=== PATIENT | female | born 1955 | race Caucasian/White ===

== ENCOUNTER 2017-09-18 10:33 | Inpatient (IN) ==
--- NOTE | 2017-09-18 10:49 | Emergency Department Note ---
ED Disposition Clinical Impression: Pancreatitis Qualifiers: Pancreatitis type: unspecified pancreatitis type Acute pancreatitis complication: no infection or necrosis Disposition: Still a Patient Condition on Discharge: Fair - Critical Care Critical Care Time: No Attestation: On 09/18/17, the high probability of a clinically significant, sudden or life threatening deterioration of the following system(s) required my full and direct attention, intervention and personal management. The time I documented below is in addition to time spent performing reported procedures but includes the following listed in this critical care notation. Medical Decision Making - Petr Inquiry Pt receiving controlled substance: Yes Petr was queried for this patient: No Reason not queried -: Emergent pt cond-no time Risks and benefits of using a controlled substance: were not discussed with pt by me Vital Signs: 09/18/17 10:38 09/18/17 11:03 09/18/17 11:30 Temperature 97.6 F Temperature Source Oral Pulse Rate [Right Brachial] 85 78 87 Respiratory Rate 20 18 18 Blood Pressure [Right Arm] 154/67 150/68 168/87 Blood Pressure Mean [Right Arm] 96 95 114 Blood Pressure Source [Right Arm] Automatic Cuff Automatic Cuff Automatic Cuff Blood Pressure Position [Right Arm] Supine Sitting Sitting 02 Sat by Pulse Oximetry 99 97 99 Oxygen Delivery Method Room Air 09/18/17 12:36 Temperature Temperature Source Pulse Rate [Right Brachial] 80 Respiratory Rate 18 Blood Pressure [Right Arm] 160/77 Blood Pressure Mean [Right Arm] 104 Blood Pressure Source [Right Arm] Automatic Cuff Blood Pressure Position [Right Arm] Sitting 02 Sat by Pulse Oximetry 98 Oxygen Delivery Method Room Air - Lab Data Lab Results 09/18/17 11:00: Urine Color Yellow, Urine Appearance Clear, Urine pH 6.0, Ur Specific [place] >= 1.030, Urine Protein 1+, Urine Glucose (UA) Negative, Urine Ketones 1+, Urine Blood 1+, Urine Nitrate Negative, Urine Bilirubin Negative, Urine Urobilinogen 0.2, Ur Leukocyte Esterase Negative, Urine RBC Occasional, Urine WBC 5-10, Ur Squamous Epith Cells 20-50, Urine Bacteria 2+ 09/18/17 11:00: WBC 14.5 H, RBC 5.24, Hgb 14.1, Hct 43.4, MCV 82.9, MCH 26.9 L, MCHC 32.5, RDW 14.8, Plt Count 218, MPV 8.0, Neut % (Auto) 89.3 H, Lymph % (Auto ) 6.2 L, [place] % (Auto) 4.1, Eos % (Auto) 0.2, Baso % (Auto) 0.2, Neut # (Auto) 12.9 H, Lymph # (Auto) 0.9, [place] # (Auto) 0.6, Eos # (Auto) 0.0, Baso # (Auto) 0.0, Total Counted 100, Neutrophils % (Manual) 83 H, Lymphocytes % (Manual) 9 L , Monocytes % (Manual) 8, Platelet Estimate Normal, Hypochromasia 1+ 09/18/17 11:00: Sodium 137, Potassium 3.6, Chloride 102, Carbon Dioxide 24, Anion Gap 14.6, BUN 13, Creatinine 0.81, Estimated Creat Clear 83, Estimated GFR 72, Est GFR ( Amer) 87, Glucose 121 H, Calcium 8.4 L, Total Bilirubin 0.7, AST 21, ALT 22, Alkaline Phosphatase 72, Troponin I < 0.02, Total Protein 6.9, Albumin 3.8, Globulin 3.1, Albumin/Globulin Ratio 1.2, Lipase 31157 H Result diagrams: 09/18/17 11:00 09/18/17 11:00 Orders (Tests/Meds): ED MEDICATIONS Discontinued Medications Generic Name Dose Route Start Last Admin Trade Name Saritha PRN Reason Stop Dose Admin Hydromorphone HCl 1 mg 09/18/17 12:51 09/18/17 12:57 Dilaudid 2mg/Ml Syringe IV 09/18/17 12:52 1 mg ONCE ONE Administration Sodium Chloride 1,000 mls @ 999 mls/hr 09/18/17 11:00 09/18/17 10:54 Sod Chlor 0.9% 1000ml Bag IV 09/18/17 12:00 999 mls/hr .Q1H1M CAROLEE Administration Iopamidol 75 ml 09/18/17 11:52 09/18/17 11:53 [id number]-[id number]; 75ml Vial IV 09/18/17 11:53 75 ml ONCE ONE Administration Morphine Sulfate 4 mg 09/18/17 10:58 09/18/17 11:04 Morphine 4mg/Ml Syringe IV 09/18/17 10:59 4 mg ONCE ONE Administration Ondansetron HCl 4 mg 09/18/17 10:53 09/18/17 10:54 Zofran 4mg/2ml Vial IV 09/18/17 10:54 4 mg ONCE ONE Administration Sodium Chloride 10 ml 09/18/17 11:52 09/18/17 11:53 Rad-Saline Flush 10ml Syringe IV 09/18/17 11:53 10 ml ONCE ONE Administration ORDERS Category Date Time Status Urine Culture Stat Micro 09/18/17 11:00 Received - ECG Data Tracing #1 EKG interpreted by Mamadou Shipley MD: Rhythm: sinus Rate: 65 [place]: normal Ectopy: none Conduction: normal ST Segment Changes: none T Wave Changes: none Q Waves: none No evidence of acute ischemia or injury Normal electrocardiogram - Physician Consults Physician Consulted: Etta Time: 13:22 Reason -: Admission Comment/Response: Agrees to admit the patient to the hospital. We discussed the patient's clinical information, including history, exam, laboratory and radiology results and ED course. Per hospital procedure, I will write temporary bridge inpatient orders on the patient. Specific orders requested by the admitting physician: Surgical consult, gallbladder ultrasound in the morning , IV fluids, clear liquids General Adult HPI - General Stated complaint: stomach pains Time Seen by Provider: 09/18/17 10:49 - History of Present Illness HPI narrative: Generalized abdominal pain since 4 PM yesterday. One episode of vomiting. Poor appetite and states she has not been drinking much fluid either. No urinary symptoms except decreased urinary output. Feels hot and cold, but temperature not taken. No diarrhea or constipation, last bowel movement yesterday morning. Prior hysterectomy, no other abdominal surgeries. Pain is improved by laying down. Pain radiates to back. - Related Data Home Medications Medication Instructions Recorded Confirmed Aspirin [Aspir 81] 81 mg PO DAILY 09/18/17 09/18/17 Pravastatin Sodium [Pravachol 20mg 20 mg PO DAILY 09/18/17 09/18/17 Tablet] Allergies Allergy/AdvReac Type Severity Reaction Status Date / Time nickel Allergy Verified 09/18/17 10:51 [facility] History I have reviewed the patient's past medical history: Yes ROS Obtained: Yes All systems reviewed & no additional complaints - Constitutional Constitutional: Reports as per HPI - Cardiovascular Cardiovascular: Denies chest pain - Respiratory Respiratory: No dyspnea - Gastrointestinal Gastrointestingal: Reports: abdominal pain, nausea, vomiting. Denies: constipation, diarrhea - Genitourinary Female Genitourinary: Denies dysuria - Musculoskeletal Musculoskeletal: Reports back pain Physical Exam - General General appearance: alert, in no apparent distress - Head Head exam: atraumatic, normocephalic, normal inspection - Eye Eye exam: Present: normal appearance, PERRL, EOMI - ENT ENT exam: Present: normal exam, mucous membranes moist - Neck Neck exam: Present: normal inspection, full ROM, trachea midline. Absent: meningismus, lymphadenopathy - Chest Chest inspection: Present: normal inspection, symmetric chest wall rise. Absent : tenderness - Respiratory Respiratory exam: Present: normal lung sounds bilaterally. Absent: respiratory distress - Cardiovascular Cardiovascular exam: Present: regular rate, normal rhythm. Absent: JVD - Abdominal Exam Abdominal exam: Present: soft, tenderness, normal bowel sounds. Absent: distention, guarding, rebound, rigidity Abdominal tenderness: Present: diffuse - Extremities Exam Extremities exam: Present: normal inspection, full ROM, normal capillary refill. Absent: calf tenderness - Back Exam Back exam: Present: normal inspection. Absent: tenderness - Neurological Exam Neurological exam: Present: alert, oriented X3 - Psychiatric Psychiatric exam: Present: normal affect, normal mood - Skin Skin exam: Present: warm, dry, intact, normal color - Lymphatic Lymphatic Findings: no adenopathy
[2017-09-18 11:07] LABS: Microscopic, Urine URINE MICROSCOPIC (MICROSCOPIC)
[2017-09-18 11:10] LABS: Appearance,Urine CLEAR (Clear); Basophils % 0.2 % (0.1-2.0); Blood, Urine 1+ (Negative); Color,Urine YELLOW (Yellow); Eosinophils % 0.2 % (0.1-12.0); Glucose,Urine (UA) Negative (Negative); Hematocrit 43.4 % (37.0-47.0); Hemoglobin 14.1 g/dL (12.2-16.2); Ketones,Urine 1+ (Negative); Leukocyte Esterase,Urine Negative (Negative); Lymphocytes # 0.9 K/mm3 (0.7-4.5); Lymphocytes % 6.2 K/mm3 (10-50); Mean Corpuscular HGB Conc 32.5 g/dL (31.8-35.4); Mean Corpuscular Hemoglobin 26.9 pg (27.0-31.2); Mean Corpuscular Volume 82.9 fl (81-99); Monocytes # 0.6 K/mm3 (0.1-1.0); Monocytes % 4.1 % (1.7-9.3); Neutrophils # 12.9 K/mm3 (1.8-7.8); Neutrophils % 89.3 % (37.0-80.0); Platelet Count 218 K/mm3 (142-424); Protein,Urine 1+ (Negative); Red Blood Count 5.24 M/mm3 (4.20-5.40); Red Cell Distribution Width 14.8 % (11.5-17.5); Specific Gravity, Urine >= 1.030 (1.005-1.030); Urobilinogen,Urine 0.2 EU/dl (0.2); White Blood Count 14.5 K/mm3 (4.8-10.8)
[2017-09-18 11:27] LABS: Bilirubin,Urine Negative (Negative)
[2017-09-18 11:28] LABS: Hypochromasia 1+; Lymphocytes % 9 % (10-50); Monocytes % 8 % (2-9); Neutrophils % 83 % (42-76); Total Cells Counted 100
[2017-09-18 11:33] LABS: Bacteria,Urine 2+ /lpf; RBC,Urine Occasional #/hpf (0-3); Squamous Epithelial Cell,Urine 20-50 #/hpf (0-5)
[2017-09-18 11:35] LABS: Alanine Aminotransferase 22 U/L (12-78); Albumin Level 3.8 gm/dL (3.4-5.0); Albumin/Globulin Ratio 1.2 (1.1-1.8); Alkaline Phosphatase 72 U/L (46-116); Anion Gap 14.6 mEq/L (5-15); Aspartate Amino Transferase 21 U/L (15-37); Bilirubin,Total 0.7 mg/dL (0.2-1.0); Blood Urea Nitrogen 13 mg/dL (7-18); Calcium 8.4 mg/dL (8.5-10.1); Carbon Dioxide 24 mmol/L (21.0-32.0); Chloride 102 mmol/L (98-107); Globulin 3.1 gm/dl (1.3-3.2); Glucose 121 mg/dL (74-106); Potassium 3.6 mmoL/L (3.5-5.1); Sodium 137 mmol/L (136-145); Total Protein,Serum 6.9 gm/dL (6.4-8.2)
[2017-09-18 12:23] LABS: Lipase 11703 u/L (73-393)
--- NOTE | 2017-09-18 15:37 | Pharmacy Consult Notes ---
[facility] Pharmacy VTE Monitoring - Patient Demographics Admission date: 09/18/17 Report Date: 09/18/17 Time: 15:37 Allergies/Adverse Reactions: Patient Allergies nickel Allergy (Verified 09/18/17 10:51) Height: 1.55 m Weight: 88.904 kg Patient Problems: Current Active Problems Pancreatitis (Acute) - VTE Risk Labs: VTE Related Lab Results Hgb 14.1 g/dL (12.2-16.2) 09/18/17 11:00 Hct 43.4 % (37.0-47.0) 09/18/17 11:00 Plt Count 218 K/mm3 (142-424) 09/18/17 11:00 BUN 13 mg/dL (7-18) 09/18/17 11:00 Creatinine 0.81 mg/dL (0.55-1.02) 09/18/17 11:00 Estimated Creat Clear 83 mL/min (0-300) 09/18/17 11:00 - Prophylaxis VTE Prophylaxis Ordered?: Yes Types of VTE Prophylaxis: TEDS Knee High Location of Applied Device: Bilateral Lower Extremeties - VTE Diagnosis Confirmed Treatment or plan recommended: Continue Current Treatment
--- NOTE | 2017-09-19 06:46 | History & Physical Report ---
*Admission Date: 09/18/17 *Chief complaint: abd pain *History of present illness: this wf has progressive abd pain with vomiting over the last few days and presented to ed eneralized abdominal pain since 4 PM yesterday. One episode of vomiting. Poor appetite and states she has not been drinking much fluid either. No urinary symptoms except decreased urinary output. Feels hot and cold, but temperature not taken. No diarrhea or constipation, last bowel movement yesterday morning. Prior hysterectomy, no other abdominal surgeries. Pain is improved by laying down. 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 No: Pacemaker Amputation: No Fractures: No - *Social History Educational Level: Completed High School Smoking Status: Current every day smoker Tobacco Type: cigarettes # Packs/Day (cigarettes): 1 #Yrs smoked (if former smoker): 46 Alcohol Intake: never Occupational Status: employed Housing: house Household Members: none - Psychiatric History Expresses thoughts of harming self/others: None Suicide Plan Description: No Plan *Family Hx:: Cancer Review of Systems - Review of Systems Review of systems:: pertinent systems reviewed and negative unless documented below - Constitutional Denies fever(s) - Eyes Denies change in vision - ENT Denies sore throat - *Cardiovascular Denies chest pain - *Respiratory Denies cough - *Gastrointestinal Reports abdominal pain, Reports nausea, Reports vomiting, Denies black, tarry stools - *Genitourinary Denies blood in urine - *Musculoskeletal Denies joint pain - Integumentary/Breasts Denies rash - *Neurologic Denies seizure-like activity - Psychiatric Denies anxiety Meds Home Medications Medication Instructions Recorded Confirmed Type Aspirin [Aspir 81] 81 mg PO DAILY 09/18/17 09/18/17 History Pravastatin Sodium [Pravachol 20mg 20 mg PO DAILY 09/18/17 09/18/17 History Tablet] Allergies Allergy/AdvReac Type Severity Reaction Status Date / Time nickel Allergy Verified 09/18/17 10:51 Exam Vital signs and Labs for Last 24 Hours: Temp Pulse Resp BP Pulse Ox 98.8 F 88 17 115/60 91 L 09/19/17 04:00 09/19/17 04:00 09/19/17 04:00 09/19/17 04:00 09/19/17 04:00 Laboratory Results - last 24 hr 09/18/17 11:00: Urine Color Yellow, Urine Appearance Clear, Urine pH 6.0, Ur Specific [place] >= 1.030, Urine Protein 1+, Urine Glucose (UA) Negative, Urine Ketones 1+, Urine Blood 1+, Urine Nitrate Negative, Urine Bilirubin Negative, Urine Urobilinogen 0.2, Ur Leukocyte Esterase Negative, Urine RBC Occasional, Urine WBC 5-10, Ur Squamous Epith Cells 20-50, Urine Bacteria 2+ 09/18/17 11:00: WBC 14.5 H, RBC 5.24, Hgb 14.1, Hct 43.4, MCV 82.9, MCH 26.9 L, MCHC 32.5, RDW 14.8, Plt Count 218, MPV 8.0, Neut % (Auto) 89.3 H, Lymph % (Auto ) 6.2 L, [place] % (Auto) 4.1, Eos % (Auto) 0.2, Baso % (Auto) 0.2, Neut # (Auto) 12.9 H, Lymph # (Auto) 0.9, [place] # (Auto) 0.6, Eos # (Auto) 0.0, Baso # (Auto) 0.0, Total Counted 100, Neutrophils % (Manual) 83 H, Lymphocytes % (Manual) 9 L , Monocytes % (Manual) 8, Platelet Estimate Normal, Hypochromasia 1+ 09/18/17 11:00: Sodium 137, Potassium 3.6, Chloride 102, Carbon Dioxide 24, Anion Gap 14.6, BUN 13, Creatinine 0.81, Estimated Creat Clear 83, Estimated GFR 72, Est GFR ( Amer) 87, Glucose 121 H, Calcium 8.4 L, Total Bilirubin 0.7, AST 21, ALT 22, Alkaline Phosphatase 72, Troponin I < 0.02, Total Protein 6.9, Albumin 3.8, Globulin 3.1, Albumin/Globulin Ratio 1.2, Lipase 12413 H I & O for Last 24 hours: Intake & Output 09/16/17 09/17/17 09/18/17 09/19/17 11:59 11:59 11:59 11:59 Intake Total 930 / 930 Output Total 100 / 100 Balance 830 / 830 Weight 196 lb 196 lb - Constitutional no acute distress - *Routine HEENT Exam Head: Present: normocephalic Eye: Present: EOMI, PERRL ENT: Present: mucous membranes dry - *Routine Neck Exam Present: supple - *Routine Respiratory Exam Present: CTA bilaterally - *Routine Cardiovascular Exam Present: RRR, murmur, S4 - *Routine Abdominal Exam Present: soft, tenderness - *Routine Extremities Exam Absent: calf tenderness - *Routine Skin Exam Present: intact - *Routine Neurological Exam Present: alert, oriented X3, CN II-XII intact - Routine Psychiatric Exam Present: normal affect H&P: Result - Labs Labs: Short CBC 09/18/17 Range/Units 11:00 WBC 14.5 H (4.8-10.8) K/mm3 Hgb 14.1 (12.2-16.2) g/dL Hct 43.4 (37.0-47.0) % Plt Count 218 (142-424) K/mm3 BMP 09/18/17 11:00 Sodium 137 Potassium 3.6 Chloride 102 Carbon Dioxide 24 BUN 13 Creatinine 0.81 Glucose 121 H Calcium 8.4 L Cardiac Enzymes 09/18/17 Range/Units 11:00 Troponin I < 0.02 (0.00-0.06) ng/ml Liver Function 09/18/17 Range/Units 11:00 Total Bilirubin 0.7 (0.2-1.0) mg/dL AST 21 (15-37) U/L ALT 22 (12-78) U/L Alkaline Phosphatase 72 (46-116) U/L Albumin 3.8 (3.4-5.0) gm/dL Urine 09/18/17 Range/Units 11:00 Urine Color Yellow (Yellow) Urine Appearance Clear (Clear) Urine pH 6.0 (5.0-8.5) Ur Specific [place] >= 1.030 (1.005-1.030) Urine Protein 1+ (Negative) Urine Glucose (UA) Negative (Negative) Assessment and Plan (1) Pancreatitis Current visit: Yes Status: Acute Qualifiers: Pancreatitis type: unspecified pancreatitis type Acute pancreatitis complication: no infection or necrosis Category: Medical Code(s): K85.90 - Acute pancreatitis without necrosis or infection, unspecified (2) Cholelithiasis Current visit: Yes Status: Acute Category: Medical Code(s): K80.20 - Calculus of gallbladder without cholecystitis without obstruction
--- NOTE | 2017-09-19 06:56 | Consult Report ---
*Admission Date: 09/18/17 *Chief complaint: GALLSTONE *History of present illness: Patient is a 62-year-old white female who had developed sudden onset of high epigastric pain beginning approximately 4 PM on 09/17/17. This was quite severe and described as sharp. Radiating anterior chest. She developed general abdominal discomfort and pain. She presented to the emergency department yesterday afternoon. She is found to have markedly elevated pancreatic enzymes and mild to moderate leukocytosis. She had CT scan performed with IV contrast which revealed findings consistent with significant pancreatitis radiographically with peripancreatic adenopathy. She was admitted for inpatient management. She did have ultrasound of the gallbladder performed which revealed a single gallstone without any evidence of biliary ductal dilatation, pericholecystic fluid, gallbladder wall thickening. Surgical consultation was obtained. 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 No: Pacemaker Amputation: No Fractures: No - *Social History Educational Level: Completed High School Smoking Status: Current every day smoker Tobacco Type: cigarettes # Packs/Day (cigarettes): 1 #Yrs smoked (if former smoker): 46 Alcohol Intake: never Occupational Status: employed Housing: house Household Members: none - Psychiatric History Expresses thoughts of harming self/others: None Suicide Plan Description: No Plan *Family Hx:: Cancer Meds Home Medications Medication Instructions Recorded Confirmed Type Aspirin [Aspir 81] 81 mg PO DAILY 09/18/17 09/18/17 History Pravastatin Sodium [Pravachol 20mg 20 mg PO DAILY 09/18/17 09/18/17 History Tablet] Allergies Allergy/AdvReac Type Severity Reaction Status Date / Time nickel Allergy Verified 09/18/17 10:51 Exam Vital signs and Labs for Last 24 Hours: Temp Pulse Resp BP Pulse Ox 98.8 F 88 17 115/60 91 L 09/19/17 04:00 09/19/17 04:00 09/19/17 04:00 09/19/17 04:00 09/19/17 04:00 Laboratory Results - last 24 hr 09/18/17 11:00: Urine Color Yellow, Urine Appearance Clear, Urine pH 6.0, Ur Specific [place] >= 1.030, Urine Protein 1+, Urine Glucose (UA) Negative, Urine Ketones 1+, Urine Blood 1+, Urine Nitrate Negative, Urine Bilirubin Negative, Urine Urobilinogen 0.2, Ur Leukocyte Esterase Negative, Urine RBC Occasional, Urine WBC 5-10, Ur Squamous Epith Cells 20-50, Urine Bacteria 2+ 09/18/17 11:00: WBC 14.5 H, RBC 5.24, Hgb 14.1, Hct 43.4, MCV 82.9, MCH 26.9 L, MCHC 32.5, RDW 14.8, Plt Count 218, MPV 8.0, Neut % (Auto) 89.3 H, Lymph % (Auto ) 6.2 L, [place] % (Auto) 4.1, Eos % (Auto) 0.2, Baso % (Auto) 0.2, Neut # (Auto) 12.9 H, Lymph # (Auto) 0.9, [place] # (Auto) 0.6, Eos # (Auto) 0.0, Baso # (Auto) 0.0, Total Counted 100, Neutrophils % (Manual) 83 H, Lymphocytes % (Manual) 9 L , Monocytes % (Manual) 8, Platelet Estimate Normal, Hypochromasia 1+ 09/18/17 11:00: Sodium 137, Potassium 3.6, Chloride 102, Carbon Dioxide 24, Anion Gap 14.6, BUN 13, Creatinine 0.81, Estimated Creat Clear 83, Estimated GFR 72, Est GFR ( Amer) 87, Glucose 121 H, Calcium 8.4 L, Total Bilirubin 0.7, AST 21, ALT 22, Alkaline Phosphatase 72, Troponin I < 0.02, Total Protein 6.9, Albumin 3.8, Globulin 3.1, Albumin/Globulin Ratio 1.2, Lipase 81085 H I & O for Last 24 hours: Intake & Output 09/16/17 09/17/17 09/18/17 09/19/17 11:59 11:59 11:59 11:59 Intake Total 2911 / 2911 Output Total 100 / 100 Balance 2811 / 2811 Weight 196 lb 196 lb - Constitutional no acute distress - *Routine HEENT Exam Comments: Sclera nonicteric - *Routine Respiratory Exam Present: CTA bilaterally - *Routine Cardiovascular Exam Present: RRR - *Routine Abdominal Exam Present: soft, tenderness Results - Labs 09/18/17 11:00 09/18/17 11:00 Laboratory Results - last 24 hr 09/18/17 11:00: Urine Color Yellow, Urine Appearance Clear, Urine pH 6.0, Ur Specific [place] >= 1.030, Urine Protein 1+, Urine Glucose (UA) Negative, Urine Ketones 1+, Urine Blood 1+, Urine Nitrate Negative, Urine Bilirubin Negative, Urine Urobilinogen 0.2, Ur Leukocyte Esterase Negative, Urine RBC Occasional, Urine WBC 5-10, Ur Squamous Epith Cells 20-50, Urine Bacteria 2+ 09/18/17 11:00: WBC 14.5 H, RBC 5.24, Hgb 14.1, Hct 43.4, MCV 82.9, MCH 26.9 L, MCHC 32.5, RDW 14.8, Plt Count 218, MPV 8.0, Neut % (Auto) 89.3 H, Lymph % (Auto ) 6.2 L, [place] % (Auto) 4.1, Eos % (Auto) 0.2, Baso % (Auto) 0.2, Neut # (Auto) 12.9 H, Lymph # (Auto) 0.9, [place] # (Auto) 0.6, Eos # (Auto) 0.0, Baso # (Auto) 0.0, Total Counted 100, Neutrophils % (Manual) 83 H, Lymphocytes % (Manual) 9 L , Monocytes % (Manual) 8, Platelet Estimate Normal, Hypochromasia 1+ 09/18/17 11:00: Sodium 137, Potassium 3.6, Chloride 102, Carbon Dioxide 24, Anion Gap 14.6, BUN 13, Creatinine 0.81, Estimated Creat Clear 83, Estimated GFR 72, Est GFR ( Amer) 87, Glucose 121 H, Calcium 8.4 L, Total Bilirubin 0.7, AST 21, ALT 22, Alkaline Phosphatase 72, Troponin I < 0.02, Total Protein 6.9, Albumin 3.8, Globulin 3.1, Albumin/Globulin Ratio 1.2, Lipase 21241 H Assessment and Plan - Assessment and plan all Dx Assessment and Plan for all problems:: Patient has appreciable degree of acute pancreatitis. Continue medical management with bowel rest at this time and IV fluid hydration. This is possibly biliary. At this point, however, would not pursue cholecystectomy. May need gastroenterology evaluation. May need additional imaging such as MRI of the pancreas given the abnormalities noted on CT scan, particularly the peripancreatic adenopathy consistent with either reactive adenopathy, lymphoma, or metastatic disease.
--- NOTE | 2017-09-20 08:11 | Progress Note ---
Subjective Patient reports: feels better Narrative: Patient feels a bit better. Less pain. Exam Vital signs and Labs for Last 24 Hours: Temp Pulse Resp BP Pulse Ox 97.8 F 87 20 137/67 90 L 09/20/17 07:46 09/20/17 07:46 09/20/17 07:46 09/20/17 07:46 09/20/17 07:46 Laboratory Results - last 24 hr 09/19/17 06:21: Lipase 2767 H 09/19/17 06:21: Lactate Dehydrogenase 272 H I & O for Last 24 hours: Intake & Output 09/17/17 09/18/17 09/19/17 09/20/17 11:59 11:59 11:59 11:59 Intake Total 2911 / 2911 749 / 749 Output Total 275 / 275 650 / 650 Balance 2636 / 2636 99 / 99 Weight 196 lb 196 lb 195 lb 15.996 oz Microbiology Reports for the Last 24 Hours: Microbiology 09/18/17 11:00 Urine,Clean Catch Urine Culture - Final Multiple organisms, suggests contamination. - *Routine Abdominal Exam Present: soft, tenderness. Absent: rebound, guarding Progress Note: A&P (1) Pancreatitis Status: Acute Current Visit: Yes (2) Cholelithiasis Status: Acute Current Visit: Yes Assessment and Plan for All Diagnoses:: Recheck labs today. If improving may be able to give clear liquids. Possibly consider cholecystectomy with cholangiogram during this hospitalization. However, she will need additional investigation regarding peripancreatic adenopathy (may need PET CT) once pancreatitis resolves.
[2017-09-20 08:32] LABS: Basophils % 0.4 % (0.1-2.0); Eosinophils % 0.3 % (0.1-12.0); Hematocrit 36.5 % (37.0-47.0); Hemoglobin 11.6 g/dL (12.2-16.2); Lymphocytes # 0.8 K/mm3 (0.7-4.5); Lymphocytes % 8.8 K/mm3 (10-50); Mean Corpuscular HGB Conc 31.7 g/dL (31.8-35.4); Mean Corpuscular Hemoglobin 26.8 pg (27.0-31.2); Mean Corpuscular Volume 84.6 fl (81-99); Mean Platelet Volume 8.2 fl (7.4-10.4); Monocytes # 0.4 K/mm3 (0.1-1.0); Monocytes % 4.7 % (1.7-9.3); Neutrophils # 7.9 K/mm3 (1.8-7.8); Neutrophils % 85.9 % (37.0-80.0); Platelet Count 139 K/mm3 (142-424); Red Blood Count 4.32 M/mm3 (4.20-5.40); Red Cell Distribution Width 14.9 % (11.5-17.5); White Blood Count 9.2 K/mm3 (4.8-10.8)
[2017-09-20 08:44] LABS: Albumin Level 2.6 gm/dL (3.4-5.0); Albumin/Globulin Ratio 0.8 (1.1-1.8); Anion Gap 14.2 mEq/L (5-15); Bilirubin,Total 0.7 mg/dL (0.2-1.0); Calcium 8.1 mg/dL (8.5-10.1); Globulin 3.3 gm/dl (1.3-3.2); Potassium 3.2 mmoL/L (3.5-5.1); Total Protein,Serum 5.9 gm/dL (6.4-8.2)
[2017-09-20 09:08] LABS: Eosinophils % 1 % (0-3); Hypochromasia 1+; Lymphocytes % 10 % (10-50); Monocytes % 4 % (2-9); Neutrophils % 82 % (42-76); Total Cells Counted 100
--- NOTE | 2017-09-20 09:08 | Progress Note ---
Internal Medicine - PN: Subj *Date: 09/20/17 *Time: 09:07 Exam Vital signs and Labs for Last 24 Hours: Temp Pulse Resp BP Pulse Ox 97.8 F 87 20 137/67 90 L 09/20/17 07:46 09/20/17 07:46 09/20/17 07:46 09/20/17 07:46 09/20/17 07:46 Laboratory Results - last 24 hr 09/19/17 06:21: Lipase 2767 H 09/20/17 08:00: WBC 9.2 D, RBC 4.32, Hgb 11.6 L, Hct 36.5 L, MCV 84.6, MCH 26.8 L, MCHC 31.7 L, RDW 14.9, Plt Count 139 L D, MPV 8.2, Neut % (Auto) 85.9 H , Lymph % (Auto) 8.8 L, [place] % (Auto) 4.7, Eos % (Auto) 0.3, Baso % (Auto) 0.4, Neut # (Auto) 7.9 H, Lymph # (Auto) 0.8, [place] # (Auto) 0.4, Eos # (Auto) 0.0, Baso # (Auto) 0.0 09/20/17 08:00: Sodium 140, Potassium 3.2 L, Chloride 105, Carbon Dioxide 24, Anion Gap 14.2, BUN 9 D, Creatinine 0.62 D, Estimated Creat Clear 83, Estimated GFR 98, Est GFR ( Amer) 118 D, Glucose 79, Calcium 8.1 L, Total Bilirubin 0.7, AST 13 L D, ALT 18, Alkaline Phosphatase 53, Total Protein 5.9 L, Albumin 2.6 L, Globulin 3.3 H, Albumin/Globulin Ratio 0.8 L, Amylase 232 H, Lipase 623 H I & O for Last 24 hours: Intake & Output 09/17/17 09/18/17 09/19/17 09/20/17 11:59 11:59 11:59 11:59 Intake Total 2911 / 2911 749 / 749 Output Total 275 / 275 650 / 650 Balance 2636 / 2636 99 / 99 Weight 196 lb 196 lb 195 lb 15.996 oz Microbiology Reports for the Last 24 Hours: Microbiology 09/18/17 11:00 Urine,Clean Catch Urine Culture - Final Multiple organisms, suggests contamination. - Constitutional no acute distress - *Routine HEENT Exam Head: Present: normocephalic Eye: Present: PERRL ENT: Present: mucous membranes moist - *Routine Neck Exam Present: full ROM - *Routine Respiratory Exam Present: CTA bilaterally - *Routine Cardiovascular Exam Present: RRR - *Routine Abdominal Exam Present: soft, normoactive bowel sounds, tenderness - *Routine Extremities Exam Present: full ROM - *Routine Skin Exam Present: intact - *Routine Neurological Exam Present: alert, oriented X3, CN II-XII intact - Routine Psychiatric Exam Present: normal affect, normal thought process Assessment and Plan (1) Pancreatitis Current visit: Yes Status: Acute Qualifiers: Pancreatitis type: unspecified pancreatitis type Acute pancreatitis complication: no infection or necrosis Category: Medical Code(s): K85.90 - Acute pancreatitis without necrosis or infection, unspecified (2) Cholelithiasis Current visit: Yes Status: Acute Category: Medical Code(s): K80.20 - Calculus of gallbladder without cholecystitis without obstruction - Assessment and plan all Dx Assessment and Plan for all problems:: Rounded with Dr. Quiles all orders per Etta
--- NOTE | 2017-09-21 08:08 | Progress Note ---
Subjective Narrative: Patient taking some clear liquids. Complains of some abdominal soreness. Exam Vital signs and Labs for Last 24 Hours: Temp Pulse Resp BP Pulse Ox 98.5 F 75 18 110/53 93 L 09/21/17 04:00 09/21/17 04:00 09/21/17 04:00 09/21/17 04:00 09/21/17 04:00 Laboratory Results - last 24 hr 09/20/17 08:00: WBC 9.2 D, RBC 4.32, Hgb 11.6 L, Hct 36.5 L, MCV 84.6, MCH 26.8 L, MCHC 31.7 L, RDW 14.9, Plt Count 139 L D, MPV 8.2, Neut % (Auto) 85.9 H , Lymph % (Auto) 8.8 L, [place] % (Auto) 4.7, Eos % (Auto) 0.3, Baso % (Auto) 0.4, Neut # (Auto) 7.9 H, Lymph # (Auto) 0.8, [place] # (Auto) 0.4, Eos # (Auto) 0.0, Baso # (Auto) 0.0, Total Counted 100, Neutrophils % (Manual) 82 H, Lymphocytes % (Manual) 10, Atypical Lymphs % 3.0, Monocytes % (Manual) 4, Eosinophils % ( Manual) 1, Platelet Estimate Normal, Hypochromasia 1+ 09/20/17 08:00: Sodium 140, Potassium 3.2 L, Chloride 105, Carbon Dioxide 24, Anion Gap 14.2, BUN 9 D, Creatinine 0.62 D, Estimated Creat Clear 83, Estimated GFR 98, Est GFR ( Amer) 118 D, Glucose 79, Calcium 8.1 L, Total Bilirubin 0.7, AST 13 L D, ALT 18, Alkaline Phosphatase 53, Total Protein 5.9 L, Albumin 2.6 L, Globulin 3.3 H, Albumin/Globulin Ratio 0.8 L, Amylase 232 H, Lipase 623 H I & O for Last 24 hours: Intake & Output 09/18/17 09/19/17 09/20/17 09/21/17 11:59 11:59 11:59 11:59 Intake Total 2911 / 2911 749 / 749 1200 / 1200 Output Total 275 / 275 650 / 650 1350 / 1350 Balance 2636 / 2636 99 / 99 -150 / -150 Weight 196 lb 196 lb 195 lb 15.996 oz - *Routine Abdominal Exam Present: soft, tenderness Comments: Mild tenderness in Left upper quadrant and epigastrium. Progress Note: A&P (1) Pancreatitis Status: Acute Current Visit: Yes (2) Cholelithiasis Status: Acute Current Visit: Yes Assessment and Plan for All Diagnoses:: Will try full liquid diet. May tentatively plan for possible gallbladder early next week. If doing very well possible discharge with early outpatient follow up for cholecystectomy with cholangiogram. Will need additional workup, likely with imaging, as outpatient to evaluate possible peripancreatic adenopathy.
[2017-09-21 08:43] LABS: Basophils % 0.3 % (0.1-2.0); Eosinophils # 0.1 K/mm3 (0.0-0.4); Eosinophils % 1.2 % (0.1-12.0); Hematocrit 35.3 % (37.0-47.0); Hemoglobin 11.3 g/dL (12.2-16.2); Lymphocytes # 0.7 K/mm3 (0.7-4.5); Lymphocytes % 8.4 K/mm3 (10-50); Mean Corpuscular HGB Conc 32.2 g/dL (31.8-35.4); Mean Corpuscular Hemoglobin 26.9 pg (27.0-31.2); Mean Corpuscular Volume 83.8 fl (81-99); Mean Platelet Volume 8.5 fl (7.4-10.4); Monocytes # 0.5 K/mm3 (0.1-1.0); Neutrophils # 6.5 K/mm3 (1.8-7.8); Platelet Count 138 K/mm3 (142-424); Red Blood Count 4.21 M/mm3 (4.20-5.40); Red Cell Distribution Width 14.9 % (11.5-17.5); White Blood Count 7.7 K/mm3 (4.8-10.8)
--- NOTE | 2017-09-21 08:52 | Progress Note ---
Internal Medicine - PN: Subj *Date: 09/21/17 *Time: 08:50 Exam Vital signs and Labs for Last 24 Hours: Temp Pulse Resp BP Pulse Ox 98.1 F 80 20 112/62 90 L 09/21/17 08:00 09/21/17 08:00 09/21/17 08:00 09/21/17 08:00 09/21/17 08:00 Laboratory Results - last 24 hr 09/20/17 08:00: Total Counted 100, Neutrophils % (Manual) 82 H, Lymphocytes % ( Manual) 10, Atypical Lymphs % 3.0, Monocytes % (Manual) 4, Eosinophils % (Manual ) 1, Platelet Estimate Normal, Hypochromasia 1+ 09/21/17 08:30: WBC 7.7, RBC 4.21, Hgb 11.3 L, Hct 35.3 L, MCV 83.8, MCH 26.9 L , MCHC 32.2, RDW 14.9, Plt Count 138 L, MPV 8.5, Neut % (Auto) 84.0 H, Lymph % ( Auto) 8.4 L, [place] % (Auto) 6.0, Eos % (Auto) 1.2, Baso % (Auto) 0.3, Neut # ( Auto) 6.5, Lymph # (Auto) 0.7, [place] # (Auto) 0.5, Eos # (Auto) 0.1, Baso # (Auto ) 0.0 I & O for Last 24 hours: Intake & Output 09/18/17 09/19/17 09/20/17 09/21/17 11:59 11:59 11:59 11:59 Intake Total 2911 / 2911 749 / 749 1680 / 1680 Output Total 275 / 275 650 / 650 1350 / 1350 Balance 2636 / 2636 99 / 99 330 / 330 Weight 196 lb 196 lb 195 lb 15.996 oz - Constitutional no acute distress - *Routine HEENT Exam Head: Present: normocephalic Eye: Present: PERRL ENT: Present: mucous membranes moist - *Routine Neck Exam Present: full ROM - *Routine Respiratory Exam Present: CTA bilaterally - *Routine Cardiovascular Exam Present: RRR - *Routine Abdominal Exam Present: soft, normoactive bowel sounds, tenderness - *Routine Extremities Exam Present: full ROM - *Routine Skin Exam Present: intact - *Routine Neurological Exam Present: alert, oriented X3, CN II-XII intact - Routine Psychiatric Exam Present: normal affect, normal thought process Assessment and Plan (1) Pancreatitis Current visit: Yes Status: Acute Qualifiers: Pancreatitis type: unspecified pancreatitis type Acute pancreatitis complication: no infection or necrosis Category: Medical Code(s): K85.90 - Acute pancreatitis without necrosis or infection, unspecified (2) Cholelithiasis Current visit: Yes Status: Acute Category: Medical Code(s): K80.20 - Calculus of gallbladder without cholecystitis without obstruction - Assessment and plan all Dx Assessment and Plan for all problems:: Rounded with Dr. Quiles all orders per Etta Will advance diet Add [place] encourage patient to try p.o. pain medicine before IV pain medicine. Lipase in the a.m.
[2017-09-21 08:55] LABS: Albumin Level 2.5 gm/dL (3.4-5.0); Albumin/Globulin Ratio 0.7 (1.1-1.8); Bilirubin,Total 0.8 mg/dL (0.2-1.0); Calcium 7.7 mg/dL (8.5-10.1); Globulin 3.4 gm/dl (1.3-3.2); Total Protein,Serum 5.9 gm/dL (6.4-8.2)
--- NOTE | 2017-09-22 08:43 | Progress Note ---
Subjective Patient reports: feels better, still having pain (pain persistent, but improving ) Exam Vital signs and Labs for Last 24 Hours: Temp Pulse Resp BP Pulse Ox 97.7 F 80 18 139/64 94 L 09/22/17 07:28 09/22/17 07:28 09/22/17 08:09 09/22/17 07:28 09/22/17 08:09 Laboratory Results - last 24 hr 09/21/17 08:30: WBC 7.7, RBC 4.21, Hgb 11.3 L, Hct 35.3 L, MCV 83.8, MCH 26.9 L , MCHC 32.2, RDW 14.9, Plt Count 138 L, MPV 8.5, Neut % (Auto) 84.0 H, Lymph % ( Auto) 8.4 L, [place] % (Auto) 6.0, Eos % (Auto) 1.2, Baso % (Auto) 0.3, Neut # ( Auto) 6.5, Lymph # (Auto) 0.7, [place] # (Auto) 0.5, Eos # (Auto) 0.1, Baso # (Auto ) 0.0 09/21/17 08:30: Sodium 136, Potassium 3.0 L, Chloride 101, Carbon Dioxide 27, Anion Gap 11.0, BUN 8, Creatinine 0.63, Estimated Creat Clear 83, Estimated GFR 96, Est GFR ( Amer) 116, Glucose 123 H, Calcium 7.7 L, Total Bilirubin 0.8, AST 14 L, ALT 16, Alkaline Phosphatase 57, Total Protein 5.9 L, Albumin 2.5 L, Globulin 3.4 H, Albumin/Globulin Ratio 0.7 L, Triglycerides 72, Cholesterol 104 L, LDL Cholesterol 64, VLDL Cholesterol 14, HDL Cholesterol 26 L , Cholesterol/HDL Ratio 4.0 H, Amylase 94, Lipase 327 09/22/17 06:23: Lipase 177 I & O for Last 24 hours: Intake & Output 09/19/17 09/20/17 09/21/17 09/22/17 11:59 11:59 11:59 11:59 Intake Total 2911 / 2911 749 / 749 1680 / 1680 580 / 580 Output Total 275 / 275 650 / 650 1350 / 1350 1999 / 1999 Balance 2636 / 2636 99 / 99 330 / 330 -1420 / -1420 Weight 196 lb 195 lb 15.996 oz - Constitutional no acute distress - *Routine Cardiovascular Exam Present: RRR - *Routine Abdominal Exam Present: soft, tenderness Comments: some TTP in epigastric region (improved per pt) Progress Note: A&P (1) Pancreatitis Status: Acute Assessment and plan: slowly improving continue current medical therapy Current Visit: Yes (2) Cholelithiasis Status: Acute Assessment and plan: possible cholecystectomy (Dr. Mays) 09/24 Current Visit: Yes
--- NOTE | 2017-09-22 08:46 | Progress Note ---
Internal Medicine - PN: Subj *Date: 09/23/17 *Time: 09:22 Interval history: doing better but still with pain and dec po intake - surg considered for sunday as she is still symptomatic at this time Exam Vital signs and Labs for Last 24 Hours: Temp Pulse Resp BP Pulse Ox 97.7 F 80 18 139/64 94 L 09/22/17 07:28 09/22/17 07:28 09/22/17 08:09 09/22/17 07:28 09/22/17 08:09 Laboratory Results - last 24 hr 09/21/17 08:30: WBC 7.7, RBC 4.21, Hgb 11.3 L, Hct 35.3 L, MCV 83.8, MCH 26.9 L , MCHC 32.2, RDW 14.9, Plt Count 138 L, MPV 8.5, Neut % (Auto) 84.0 H, Lymph % ( Auto) 8.4 L, [place] % (Auto) 6.0, Eos % (Auto) 1.2, Baso % (Auto) 0.3, Neut # ( Auto) 6.5, Lymph # (Auto) 0.7, [place] # (Auto) 0.5, Eos # (Auto) 0.1, Baso # (Auto ) 0.0 09/21/17 08:30: Sodium 136, Potassium 3.0 L, Chloride 101, Carbon Dioxide 27, Anion Gap 11.0, BUN 8, Creatinine 0.63, Estimated Creat Clear 83, Estimated GFR 96, Est GFR ( Amer) 116, Glucose 123 H, Calcium 7.7 L, Total Bilirubin 0.8, AST 14 L, ALT 16, Alkaline Phosphatase 57, Total Protein 5.9 L, Albumin 2.5 L, Globulin 3.4 H, Albumin/Globulin Ratio 0.7 L, Triglycerides 72, Cholesterol 104 L, LDL Cholesterol 64, VLDL Cholesterol 14, HDL Cholesterol 26 L , Cholesterol/HDL Ratio 4.0 H, Amylase 94, Lipase 327 09/22/17 06:23: Lipase 177 I & O for Last 24 hours: Intake & Output 09/19/17 09/20/17 09/21/17 09/22/17 11:59 11:59 11:59 11:59 Intake Total 2911 / 2911 749 / 749 1680 / 1680 580 / 580 Output Total 275 / 275 650 / 650 1350 / 1350 1999 / 1999 Balance 2636 / 2636 99 / 99 330 / 330 -1420 / -1420 Weight 196 lb 195 lb 15.996 oz - Constitutional no acute distress - *Routine HEENT Exam Head: Present: normocephalic Eye: Present: EOMI, PERRL ENT: Present: mucous membranes dry - *Routine Neck Exam Present: supple - *Routine Respiratory Exam Present: CTA bilaterally - *Routine Cardiovascular Exam Present: RRR, murmur - *Routine Abdominal Exam Present: soft, tenderness - *Routine Extremities Exam Present: full ROM - *Routine Skin Exam Present: intact - *Routine Neurological Exam Present: alert, oriented X3, CN II-XII intact - Routine Psychiatric Exam Present: normal affect Assessment and Plan (1) Pancreatitis Current visit: Yes Status: Acute Qualifiers: Pancreatitis type: unspecified pancreatitis type Acute pancreatitis complication: no infection or necrosis Category: Medical Code(s): K85.90 - Acute pancreatitis without necrosis or infection, unspecified (2) Cholelithiasis Current visit: Yes Status: Acute Category: Medical Code(s): K80.20 - Calculus of gallbladder without cholecystitis without obstruction
--- NOTE | 2017-09-23 08:35 | Progress Note ---
Subjective Patient reports: feels better Exam Vital signs and Labs for Last 24 Hours: Temp Pulse Resp BP Pulse Ox 98.4 F 91 H 18 140/71 93 L 09/23/17 07:35 09/23/17 07:35 09/23/17 07:35 09/23/17 07:35 09/23/17 07:35 I & O for Last 24 hours: Intake & Output 09/20/17 09/21/17 09/22/17 09/23/17 11:59 11:59 11:59 11:59 Intake Total 749 / 749 1680 / 1680 580 / 580 1680 / 1680 Output Total 650 / 650 1350 / 1350 2000 / 2000 1400 / 1400 Balance 99 / 99 330 / 330 -1420 / -1420 280 / 280 Weight 195 lb 15.996 oz - Constitutional no acute distress - *Routine Respiratory Exam Absent: respiratory distress - *Routine Abdominal Exam Present: soft Progress Note: A&P (1) Pancreatitis Status: Acute Assessment and plan: Continuing to improve with medical management Plan laparoscopic cholecystectomy with intraoperative cholangiogram (Dr. Mays ) tomorrow secondary to likely biliary etiology. Current Visit: Yes (2) Cholelithiasis Status: Acute Current Visit: Yes
--- NOTE | 2017-09-23 09:25 | Progress Note ---
Internal Medicine - PN: Subj *Date: 09/23/17 *Time: 09:24 Interval history: doing ok still with pain and dec po intake with prob gb surg planned Exam Vital signs and Labs for Last 24 Hours: Temp Pulse Resp BP Pulse Ox 98.4 F 91 H 18 140/71 93 L 09/23/17 07:35 09/23/17 07:35 09/23/17 07:35 09/23/17 07:35 09/23/17 07:35 I & O for Last 24 hours: Intake & Output 09/20/17 09/21/17 09/22/17 09/23/17 11:59 11:59 11:59 11:59 Intake Total 749 / 749 1680 / 1680 580 / 580 1680 / 1680 Output Total 650 / 650 1350 / 1350 2000 / 2000 1400 / 1400 Balance 99 / 99 330 / 330 -1420 / -1420 280 / 280 Weight 195 lb 15.996 oz - Constitutional no acute distress - *Routine HEENT Exam Head: Present: normocephalic Eye: Present: EOMI, PERRL ENT: Present: mucous membranes dry - *Routine Neck Exam Absent: JVD - *Routine Respiratory Exam Present: CTA bilaterally - *Routine Cardiovascular Exam Present: RRR, murmur - *Routine Abdominal Exam Present: soft, tenderness - *Routine Skin Exam Present: intact - *Routine Neurological Exam Present: alert, oriented X3, CN II-XII intact - Routine Psychiatric Exam Present: normal affect Assessment and Plan (1) Pancreatitis Current visit: Yes Status: Acute Qualifiers: Pancreatitis type: unspecified pancreatitis type Acute pancreatitis complication: no infection or necrosis Category: Medical Code(s): K85.90 - Acute pancreatitis without necrosis or infection, unspecified (2) Cholelithiasis Current visit: Yes Status: Acute Category: Medical Code(s): K80.20 - Calculus of gallbladder without cholecystitis without obstruction
[2017-09-24 06:02] LABS: Basophils # 0.1 K/mm3 (0-0.2); Basophils % 0.7 % (0.1-2.0); Eosinophils # 0.2 K/mm3 (0.0-0.4); Hematocrit 39.2 % (37.0-47.0); Hemoglobin 12.9 g/dL (12.2-16.2); Lymphocytes % 10.9 K/mm3 (10-50); Mean Corpuscular HGB Conc 32.8 g/dL (31.8-35.4); Mean Corpuscular Hemoglobin 27.1 pg (27.0-31.2); Mean Corpuscular Volume 82.5 fl (81-99); Monocytes # 0.5 K/mm3 (0.1-1.0); Monocytes % 5.4 % (1.7-9.3); Platelet Count 223 K/mm3 (142-424); Red Blood Count 4.75 M/mm3 (4.20-5.40); Red Cell Distribution Width 14.8 % (11.5-17.5); White Blood Count 8.7 K/mm3 (4.8-10.8)
[2017-09-24 06:15] LABS: Albumin Level 2.8 gm/dL (3.4-5.0); Albumin/Globulin Ratio 0.7 (1.1-1.8); Anion Gap 11.2 mEq/L (5-15); Bilirubin,Total 0.8 mg/dL (0.2-1.0); Potassium 3.2 mmoL/L (3.5-5.1); Total Protein,Serum 6.8 gm/dL (6.4-8.2)
[2017-09-24 06:33] LABS: Calcium 8.7 mg/dL (8.5-10.1)
--- NOTE | 2017-09-24 08:09 | Progress Note ---
Subjective Patient reports: feels better, bowel movement Exam Vital signs and Labs for Last 24 Hours: Temp Pulse Resp BP Pulse Ox 97.8 F 91 H 18 103/52 94 L 09/24/17 07:38 09/24/17 07:38 09/24/17 07:38 09/24/17 07:38 09/24/17 07:46 Laboratory Results - last 24 hr 09/24/17 05:50: WBC 8.7, RBC 4.75, Hgb 12.9, Hct 39.2, MCV 82.5, MCH 27.1, MCHC 32.8, RDW 14.8, Plt Count 223 D, MPV 8.0, Neut % (Auto) 81.0 H, Lymph % (Auto) 10.9, [place] % (Auto) 5.4, Eos % (Auto) 2.0, Baso % (Auto) 0.7, Neut # (Auto) 7.0 , Lymph # (Auto) 1.0, [place] # (Auto) 0.5, Eos # (Auto) 0.2, Baso # (Auto) 0.1 09/24/17 05:50: Sodium 135 L, Potassium 3.2 L, Chloride 101, Carbon Dioxide 26, Anion Gap 11.2, BUN 7, Creatinine 0.67, Estimated Creat Clear 83, Estimated GFR 89, Est GFR ( Amer) 108, Glucose 103, Calcium 8.7 D, Total Bilirubin 0.8 , AST 20 D, ALT 24 D, Alkaline Phosphatase 75, Total Protein 6.8, Albumin 2.8 L, Globulin 4.0 H, Albumin/Globulin Ratio 0.7 L, Amylase 79, Lipase 365 I & O for Last 24 hours: Intake & Output 09/21/17 09/22/17 09/23/17 09/24/17 11:59 11:59 11:59 11:59 Intake Total 1680 / 1680 580 / 580 1680 / 1680 1020 / 1020 Output Total 1350 / 1350 1999 / 1999 1400 / 1400 2450 / 2450 Balance 330 / 330 -1420 / -1420 280 / 280 -1430 / -1430 - Constitutional no acute distress Progress Note: A&P (1) Pancreatitis Status: Acute Current Visit: Yes (2) Cholelithiasis Status: Acute Current Visit: Yes Assessment and Plan for All Diagnoses:: Presumed biliary pancreatitis improving. Plan for cholecystectomy with cholangiogram today to eliminate source of pancreatitis.
--- NOTE | 2017-09-24 12:23 | Progress Note ---
Internal Medicine - PN: Subj *Date: 09/24/17 *Time: 12:22 Interval history: doing better and to have surg today Exam Vital signs and Labs for Last 24 Hours: Temp Pulse Resp BP Pulse Ox 97.8 F 91 H 18 103/52 94 L 09/24/17 07:38 09/24/17 07:38 09/24/17 07:38 09/24/17 07:38 09/24/17 07:46 Laboratory Results - last 24 hr 09/24/17 05:50: WBC 8.7, RBC 4.75, Hgb 12.9, Hct 39.2, MCV 82.5, MCH 27.1, MCHC 32.8, RDW 14.8, Plt Count 223 D, MPV 8.0, Neut % (Auto) 81.0 H, Lymph % (Auto) 10.9, [place] % (Auto) 5.4, Eos % (Auto) 2.0, Baso % (Auto) 0.7, Neut # (Auto) 7.0 , Lymph # (Auto) 1.0, [place] # (Auto) 0.5, Eos # (Auto) 0.2, Baso # (Auto) 0.1 09/24/17 05:50: Sodium 135 L, Potassium 3.2 L, Chloride 101, Carbon Dioxide 26, Anion Gap 11.2, BUN 7, Creatinine 0.67, Estimated Creat Clear 83, Estimated GFR 89, Est GFR ( Amer) 108, Glucose 103, Calcium 8.7 D, Total Bilirubin 0.8 , AST 20 D, ALT 24 D, Alkaline Phosphatase 75, Total Protein 6.8, Albumin 2.8 L, Globulin 4.0 H, Albumin/Globulin Ratio 0.7 L, Amylase 79, Lipase 365 I & O for Last 24 hours: Intake & Output 09/22/17 09/23/17 09/24/17 09/25/17 11:59 11:59 11:59 11:59 Intake Total 580 / 580 1680 / 1680 1020 / 1020 Output Total 1999 / 1999 1400 / 1400 2450 / 2450 Balance -1420 / -1420 280 / 280 -1430 / -1430 - Constitutional no acute distress - *Routine HEENT Exam Head: Present: normocephalic Eye: Present: EOMI, PERRL ENT: Present: mucous membranes dry - *Routine Neck Exam Present: supple - *Routine Respiratory Exam Absent: respiratory distress - *Routine Cardiovascular Exam Present: RRR - *Routine Abdominal Exam Present: soft - *Routine Extremities Exam Absent: calf tenderness - *Routine Skin Exam Present: intact - *Routine Neurological Exam Present: alert, oriented X3, CN II-XII intact - Routine Psychiatric Exam Present: normal affect Assessment and Plan (1) Pancreatitis Current visit: Yes Status: Acute Qualifiers: Pancreatitis type: unspecified pancreatitis type Acute pancreatitis complication: no infection or necrosis Category: Medical Code(s): K85.90 - Acute pancreatitis without necrosis or infection, unspecified (2) Cholelithiasis Current visit: Yes Status: Acute Category: Medical Code(s): K80.20 - Calculus of gallbladder without cholecystitis without obstruction
--- NOTE | 2017-09-24 13:48 | Progress Note ---
[facility] Anesthesia Checklist - Patient Identification Patient Identification: Arm Band, Verbal (Name & ) - Structural Data Admitted From: Home Planned Operative Procedure/s: Laparoscopic Cholecystectomy, choleangiogram Consent for Planned Operative Procedure(s) Verified: Yes Verified Documents: Surgical Consent, History and Physical - NPO Status Verified Time NPO: 00:00 - Additional verifications Patient : No Anesthesia Reactions: No - Airway Assessment C-Spine Mobility Assessed: Yes TMJ Mobility Assessed: Yes Dentition: Edentulous (Lower pins noted) - Neurological Assessment Level of Consciousness: Awake Hx Seizures: No Numbness or tingling in extremities: No - Anesthesia Plan Anesthesia Risk discussed: Yes Anesthesia Plan: Verified ASA Class: III Anesthesia Type: General [facility] Anesthesia HX I have reviewed the patient's past medical history: Yes Medical History: Reports:: Chronic Obstructive Pulmonary Disease (COPD), Heart Murmur (Rheumatic Fever 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 No: Pacemaker Amputation: No Fractures: No *Family Hx:: Cancer
--- NOTE | 2017-09-24 15:14 | Operative Note ---
Date of procedure: 09/24/17 Pre-op Diagnosis:: Biliary pancreatitis Post-op Diagnosis:: Same Procedure performed:: Laparoscopic cholecystectomy with intraoperative cholangiogram Surgeon:: Yovany Mays MD Heel Slicker(s):: Bria Lindsey Anesthesia: FRANCIE Estimated blood loss (mL): 25 Clinical Note:: Patient is a 62-year-old white female. She was admitted last week with appreciable pancreatitis. She had a ultrasound of gallbladder performed which revealed gallstone. There is no other obvious etiology and to be biliary pancreatitis. Pancreatitis was treated medically and improved. She improved by objective laboratory findings and clinically. Plan was made for cholecystectomy with cholangiogram to eliminate the source and etiology of pancreatitis to prevent future recurrent pancreatitis. Operative findings:: She has somewhat edematous distended gallbladder. She did have omental adhesions in the lower abdomen from apparent laparoscopic hysterectomy. Operative note:: Consent was obtained. Patient was taken to the operating room. She was given preoperative intravenous antibiotics. In the operating room she is placed in a supine position. General anesthesia was induced. Abdomen was prepped and draped in the standard surgical fashion. Subumbilical skin incision was made in previous laparoscopy scar. While performing abdominal wall lift Veress needle was inserted. CO2 pneumoperitoneum was achieved to 15 mmHg. 10/11 mm optical trocar was inserted at the umbilicus. Intraperitoneal contents were visualized. There were noted to be some omental adhesions. A window was identified through which the upper abdomen could be visualized. She was positioned in reverse Trendelenburg left side down. A couple of 5 mm trochars were inserted in the right upper abdomen. 10 mm trocar was inserted in the epigastrium. The laparoscope was inserted through the epigastric trocar site and with laparoscopic Metzenbaum dissection the omental adhesions were taken down to below the umbilicus. Laparoscope was inserted through the umbilical trocar site and the gallbladder is identified. Gallbladder was grasped and retracted anteriorly and superiorly over the dome of the liver. The infundibulum/Guzman's pouch of the gallbladder was retracted anterolaterally. Blunt dissection was carried out at the neck of the gallbladder bluntly incising the visceral peritoneum. Dissection was. Out identifying the cystic duct and cystic artery. Cystic duct was clipped proximal to the gallbladder. There approximately a 2 mm incision in the right upper abdomen taut cholangiocatheter introducer was inserted. There is small incision in the cystic duct the cholangiocatheter was manipulated into the cystic duct. She had a very attenuated thin cystic duct. It was secured with a single Hemoclip. Intraoperative cholangiogram was performed. This revealed no evidence of any filling defect or obstruction. Patient was then repositioned. Cholangiocatheter was removed. The cystic duct was then multiply clipped and then divided. Cystic artery was carefully coagulated with Chirag ultrasonic harmonic rush and divided. The gallbladder was dissected free from the liver in a retrograde fashion using Chirag ultrasonic harmonic rush. Gallbladder was placed within an Endo Catch retrieval device removed from the peritoneal cavity via the umbilical trocar site. Gallbladder fossa was irrigated and aspirated until clear. Trochars were removed as CO2 pneumoperitoneum was evacuated. Fascia at the umbilicus was closed with a 0 Vicryl [id number] suture. Local anesthetic was infiltrated. Skin incisions were closed with 4-0 Monocryl subcuticular fashion. Steri-Strips and dressings were applied. Condition: stable Disposition: PACU Specimens:: Gallbladder and contents Complications:: None immediately apparent
--- NOTE | 2017-09-24 15:27 | Progress Note ---
[facility] Anesthesia Record Part I Intake, IV Amount: 1,000 Estimated blood loss (mL): 10 Urine output (mL): 0 Blood Pressure: 127/57 SaO2: 96 Pulse Rate: 83 Respiratory Rate: 16 Temperature: 98.4 F Patient is:: Drowsy, Stable Stable to PACU at:: 15:25
--- NOTE | 2017-09-24 15:27 | Progress Note ---
[facility] Anesthesia Record Part II Discharge Time: 15:55 Destination: 2nd floor PACU nurse assessment reviewed?: Yes Patient Condition:: Good Anesthesia Complications:: None
--- NOTE | 2017-09-25 06:57 | Progress Note ---
Subjective Patient reports: feels better Narrative: Feels better. Tolerating low fat diet. Exam Vital signs and Labs for Last 24 Hours: Temp Pulse Resp BP Pulse Ox 97.8 F 60 17 122/54 993 H 09/25/17 04:00 09/25/17 04:00 09/25/17 04:00 09/25/17 04:00 09/25/17 04:00 I & O for Last 24 hours: Intake & Output 09/22/17 09/23/17 09/24/17 09/25/17 11:59 11:59 11:59 11:59 Intake Total 580 / 580 1680 / 1680 1020 / 1020 1360 / 1360 Output Total 1999 / 1999 1400 / 1400 2450 / 2450 Balance -1420 / -1420 280 / 280 -1430 / -1430 1360 / 1360 - *Routine Abdominal Exam Present: soft. Absent: tenderness Comments: Sanguineous drainage on umbilical incision. Progress Note: A&P (1) Pancreatitis Status: Acute Current Visit: Yes (2) Cholelithiasis Status: Acute Current Visit: Yes Assessment and Plan for All Diagnoses:: Should be okay for discharge home. Will see in office in two weeks. May need work excuse for total of approximately 4 weeks given nature of work. Will reimage pancreas in several weeks to reassess possible adenopathy and evaluate for development of pseudocyst.
[2017-09-25 08:24] VITALS: BP 114/50
--- NOTE | 2017-09-25 09:52 | Discharge Summary ---
General - General Admission date:: 09/18/17 Discharge date: 09/25/17 HPI HPI: this wf has progressive abd pain with vomiting over the last few days and presented to ed eneralized abdominal pain since 4 PM yesterday. One episode of vomiting. Poor appetite and states she has not been drinking much fluid either. No urinary symptoms except decreased urinary output. Feels hot and cold, but temperature not taken. No diarrhea or constipation, last bowel movement yesterday morning. Prior hysterectomy, no other abdominal surgeries. Pain is improved by laying down. Pain radiates to back.- pt had pancreatitis on ct with gallstones and admitted for treatment and surg eal Hospital Course Hospital Course: pt did well with ivf and pain meds and slowly resolved acute pancreatitis and then had gb surg as she still had sx and remove the cause- she after surg doing well and will be d/c to follow up with surg and pcp Objective Vital signs: Temp Pulse Resp BP Pulse Ox 98.9 F 70 18 114/50 91 L 09/25/17 08:00 09/25/17 08:00 09/25/17 08:00 09/25/17 08:00 09/25/17 08:00 no acute distress - *Routine HEENT Exam Head: Present: normocephalic Eye: Present: EOMI, PERRL. Absent: conjunctival icterus ENT: Present: mucous membranes dry - *Routine Neck Exam Present: supple - *Routine Respiratory Exam Present: CTA bilaterally - *Routine Cardiovascular Exam Present: RRR, murmur - *Routine Abdominal Exam Present: soft - *Routine Extremities Exam Absent: calf tenderness - *Routine Skin Exam Present: intact - *Routine Neurological Exam Present: alert, oriented X3, CN II-XII intact - Routine Psychiatric Exam Present: normal affect DS: Diagnosis - Discharge Diagnosis (1) Pancreatitis Status: Acute (2) Cholelithiasis Status: Acute (3) Hypokalemia Status: Acute Discharge Plan - Patient Discharge Instructions ACTIVITY: Continue current activity DIET: continue same diet - Follow up Plan Disposition: Home, Self-Intermediate Medications: Home Medications Medication Instructions Recorded Confirmed Type Aspirin [Aspir 81] 81 mg PO DAILY 09/18/17 09/18/17 History Pravastatin Sodium [Pravachol 20mg 20 mg PO DAILY 09/18/17 09/18/17 History Tablet] Prescriptions/Medication Reconciliation: Continue Pravastatin Sodium [Pravachol 20mg Tablet] 20 mg PO DAILY Aspirin [Aspir 81] 81 mg PO DAILY
== END 2017-09-25 11:24 | disposition home or self-care (01) ==
LOC: ER 10:33 → 2ND 13:34
PROVIDERS: ADMIT Emergency Medicine; ATTEND Emergency Medicine

== ENCOUNTER → 2017-11-12 09:42 | Outpatient (CLI) | payer BC, SELFPAY ==
[2017-11-12 10:20] LABS: Blood Urea Nitrogen 8 mg/dL (7-18); Creatinine,Serum 0.73 mg/dL (0.55-1.02); Estimated Glomerular Filt Rate 81 ml/min (>60); GFR (African American) 98 ML/MIN (>60)
== END ==
PROVIDERS: Visit Provider Surgery
DX: K85.90 Acute pancreatitis without necrosis or infection, unspecified (principal)
CPT/HCPCS: 36415; 82565; 84520

== ENCOUNTER → 2017-11-20 07:38 | Outpatient (CLI) | payer BC, SELFPAY ==
--- NOTE | 2017-11-20 07:45 | NVE_ITS ---
Venous Exam Indications: 729.5 Pain in limb. IMPRESSIONS 1. There is no evidence of significant Reflux. 2. No evidence of deep or superficial vein thrombosis involving the left lower extremity Left lower extremity venous duplex evaluation. Doppler flow study including spectral analysis, color and hogan scale imaging. Patient status: Outpatient. Tables: Venous flow and imaging: + + + + Location Overall Flow properties + + + + Left common femoral Patent Normal phasicity; spontaneous; normal augmentation; compressible + + + + Left saphenofemoral junction Patent Compressible + + + + Left profunda femoral Patent Compressible + + + + Left femoral Patent Normal phasicity; spontaneous; normal augmentation; compressible + + + + Left greater saphenous Patent Normal phasicity; spontaneous; normal augmentation; compressible + + + + Left popliteal Patent Normal phasicity; spontaneous; normal augmentation; compressible + + + + Left posterior tibial Patent Compressible + + + + Left peroneal Not visualized + + + + Left gastrocnemius Patent Compressible + + + + Left soleal Patent Compressible + + + + (Report amended ) Electronically signed by: Sean Leach [id number]
--- NOTE | 2017-11-20 07:45 | CT_ITS ---
CT abdomen pelvis w con CLINICAL INDICATION: Right-sided abdominal pain, tenderness, pancreatitis ITS.REASON: pancreatitis ORDERING PHYSICIAN: Yovany Mays MD PATIENT AGE: 62 years COMPARISON: None TECHNIQUE: Axial images obtained with sagittal and coronal reformats. 30 seconds, 60 seconds, and 5 minute delayed images are CONTRAST ADMINISTRATION All CT scans at the facility use one or more dose reduction, viz: automated exposure control, ma/kV adjustment per patient size (including targeted exams where dose is matched to indication, i.e. head), or iterative reconstruction technique. PROCEDURE: Oral Contrast: Redicat IV Contrast: 75 mL's of Isovue-370 . FINDINGS: No acute finding in the lung bases. There is diffuse fatty liver. There has been an interval cholecystectomy. No abnormal fluid collections evident within the gallbladder fossa. No focal liver lesions are evident. The spleen and adrenal glands are unremarkable. There are some small lymph nodes in the retroperitoneum. There is mild cortical scarring of the kidneys. No renal or ureteral calculi. No renal mass evident. There is only minimal amount of stranding of the fat noted anterior to the pancreatic head. There are some minimal nodularity present inferior to the pancreatic tail and anterior to the anterior pararenal fascia on the left which could be residual thickening from the prior pancreatitis. No pseudocyst is evident. No other significant anomalies are apparent. The appendix is unremarkable. No pelvic mass or abnormal fluid collection in the pelvis. There is been a prior hysterectomy. No evidence of diverticulitis. Previously noted portal lymph nodes appear somewhat less bulky than when compared to the previous exam measuring approximately 3 x 1.7 cm compared to 4 x 2 cm. They are still present however. No acute bony anomalies. IMPRESSION: 1. There is been improvement in the appearance of the acute pancreatitis. 2. There is some residual stranding of the fat inferior to the pancreatic tail and along the anterior aspect of the pancreatic head suggesting some residual inflammatory changes. 3. Peripancreatic and periportal adenopathy once again noted and overall appears slightly less bulky compared to the previous exam. 4. No evidence of pseudocyst
--- NOTE | 2017-11-20 07:53 | US_ITS ---
US Arterial Ankle Brachial Ind History: Left leg pain, history of varicose veins, claudication, current smoker, wrist pain ORDERING PHYSICIAN: Yovany Mays MD PATIENT AGE: 62 years TECHNIQUE: Segmental pressures obtained of both right and left leg. These are compared to brachial blood pressure to yield index at each level sampled including summary ROBERTA. The data sheets from the procedure are available in PACS FINDINGS Rest study only performed today No prior studies available for comparison. Blood pressures reported are in millimeters mercury. RIGHT LEG ROBERTA = 1.2. RIGHT LEG TBI=0.8 Brachial BP: 143 Thigh BP: 155 Calf BP: 184 Ankle PT: 174 Ankle DP : 154 Digit =113 LEFT LEG ROBERTA = 1.2 LEFT LEG TBI= 0.6 Brachial BPD: 141 Thigh BP: 146 Calf BP: 148 Ankle PT:166 Ankle DP: 156 Digit = 87 Pulses and waveforms: Normal IMPRESSION: The ABIs as reported above are within normal limits. Waveforms and pulses are also unremarkable. The left ROBERTA is slightly low at 0.6 which may indicate small vessel disease.
== END ==
PROVIDERS: Visit Provider Surgery
DX: K85.90 Acute pancreatitis without necrosis or infection, unspecified (principal); M79.605 Pain in left leg
CPT/HCPCS: 74177; 93922; 93971; Q9967

== ENCOUNTER 2017-12-10 06:58 | Observation (INO) ==
[2017-12-10 07:26] LABS: Microscopic, Urine URINE MICROSCOPIC (MICROSCOPIC)
[2017-12-10 07:30] LABS: Appearance,Urine SL CLOUDY (Clear); Blood, Urine Negative (Negative); Color,Urine YELLOW (Yellow); Glucose,Urine (UA) Negative (Negative); Ketones,Urine Negative (Negative); Leukocyte Esterase,Urine TRACE (Negative); PH,Urine 5.5 (5.0-8.5); Protein,Urine Negative (Negative); Specific Gravity, Urine >= 1.030 (1.005-1.030); Urobilinogen,Urine 0.2 EU/dl (0.2)
[2017-12-10 07:32] LABS: Basophils # 0.1 K/mm3 (0-0.2); Basophils % 0.6 % (0.1-2.0); Eosinophils # 0.1 K/mm3 (0.0-0.4); Eosinophils % 0.9 % (0.1-12.0); Hemoglobin 13.2 g/dL (12.2-16.2); Lymphocytes # 0.8 K/mm3 (0.7-4.5); Lymphocytes % 9.8 K/mm3 (10-50); Mean Corpuscular HGB Conc 31.5 g/dL (31.8-35.4); Mean Corpuscular Hemoglobin 26.4 pg (27.0-31.2); Mean Corpuscular Volume 83.8 fl (81-99); Mean Platelet Volume 8.2 fl (7.4-10.4); Monocytes # 0.3 K/mm3 (0.1-1.0); Monocytes % 3.5 % (1.7-9.3); Neutrophils # 7.1 K/mm3 (1.8-7.8); Neutrophils % 85.2 % (37.0-80.0); Platelet Count 198 K/mm3 (142-424); Red Blood Count 5.01 M/mm3 (4.20-5.40); Red Cell Distribution Width 14.6 % (11.5-17.5); White Blood Count 8.4 K/mm3 (4.8-10.8)
--- NOTE | 2017-12-10 07:32 | Emergency Department Note ---
ED Disposition Condition on Discharge: Fair - Critical Care Critical Care Time: No <Mamadou Shipley - Last Filed: 12/10/17 07:58> Condition on Discharge: Fair Time of Disposition: 09:38 - Critical Care Critical Care Time: No <Alayna Arrington - Last Filed: 12/10/17 09:38> Clinical Impression: Upper abdominal pain Acute pancreatitis Qualifiers: Pancreatitis type: unspecified pancreatitis type Acute pancreatitis complication: unspecified Qualified Code(s): K85.90 - Acute pancreatitis without necrosis or infection, unspecified Disposition: Admitted As Inpatient Additional Instructions: Admitted by Dr. Loera Referrals: Provider,Referral, [Primary Care Provider] - Attestation: On 12/10/17, the high probability of a clinically significant, sudden or life threatening deterioration of the following system(s) required my full and direct attention, intervention and personal management. The time I documented below is in addition to time spent performing reported procedures but includes the following listed in this critical care notation. Medical Decision Making - Petr Marina Pt receiving controlled substance: No - Lab Data Result diagrams: 12/10/17 07:15 12/10/17 07:15 <Mamadou Shipley - Last Filed: 12/10/17 07:58> - Medical Records Medical records reviewed: Yes: I reviewed the patient's medical records. - Petr Marina Pt receiving controlled substance: No Petr was queried for this patient: Yes Reference #:: [id number] Risks and benefits of using a controlled substance: were not discussed with pt by me Comment: Pt has received 1 scheduled presc. in past year - Lab Data Result diagrams: 12/10/17 07:15 12/10/17 07:15 - CT Data CT Scan: Abdomen, Pelvis Time Received: 09:[address] Reviewed: Yes: I have reviewed the patient's CT results, I discussed the CT results w/the radiologist, I have viewed the radiologist's interpretation <Alayna Arrington - Last Filed: 12/10/17 09:38> Vital Signs: 12/10/17 07:09 12/10/17 07:25 12/10/17 07:51 Temperature 97.8 F Temperature Source Oral Pulse Rate [Left Radial] 84 80 83 Respiratory Rate 16 Blood Pressure [Right Arm] 132/76 145/88 H Blood Pressure Mean [Right Arm] 94 107 Blood Pressure Source [Right Arm] Automatic Cuff Automatic Cuff Automatic Cuff Blood Pressure Position [Right Arm] Sitting Sitting Sitting 02 Sat by Pulse Oximetry 98 100 99 Oxygen Delivery Method Room Air Room Air Room Air 12/10/17 08:33 12/10/17 09:24 Temperature Temperature Source Pulse Rate [Left Radial] 78 70 Respiratory Rate Blood Pressure [Right Arm] 140/75 133/72 Blood Pressure Mean [Right Arm] 96 92 Blood Pressure Source [Right Arm] Automatic Cuff Automatic Cuff Blood Pressure Position [Right Arm] Sitting Sitting 02 Sat by Pulse Oximetry 99 99 Oxygen Delivery Method Room Air Room Air - Lab Data Lab Results 12/10/17 07:05: Urine Color Yellow, Urine Appearance Sl cloudy, Urine pH 5.5, Ur Specific [place] >= 1.030, Urine Protein Negative, Urine Glucose (UA) Negative, Urine Ketones Negative, Urine Blood Negative, Urine Nitrate Negative, Urine Bilirubin Negative, Urine Urobilinogen 0.2, Ur Leukocyte Esterase Trace, Urine RBC None, Urine WBC Occasional, Ur Squamous Epith Cells 10-20, Urine Bacteria Trace, Urine Mucus 2+ 12/10/17 07:15: WBC 8.4, RBC 5.01, Hgb 13.2, Hct 42.0, MCV 83.8, MCH 26.4 L, MCHC 31.5 L, RDW 14.6, Plt Count 198, MPV 8.2, Neut % (Auto) 85.2 H, Lymph % (Auto) 9.8 L, Power % (Auto) 3.5, Eos % (Auto) 0.9, Baso % (Auto) 0.6, Neut # (Auto) 7.1, Lymph # (Auto) 0.8, Power # (Auto) 0.3, Eos # (Auto) 0.1, Baso # (Auto) 0.1, Total Counted 100, Neutrophils % (Manual) 78 H, Band Neutrophils % 1.0, Lymphocytes % (Manual) 12, Monocytes % (Manual) 8, Metamyelocytes % 1.0, Platelet Estimate Normal, RBC Morphology Normal, Polychromasia 1+ 12/10/17 07:15: Sodium 141, Potassium 3.8, Chloride 106, Carbon Dioxide 25, Anion Gap 13.8, BUN 10, Creatinine 0.75, Estimated Creat Clear 83, Estimated GFR 79, Est GFR ( Amer) 95, Glucose 132 H, Calcium 8.3 L, Total Bilirubin 0.4, AST 19, ALT 26, Alkaline Phosphatase 79, Total Protein 7.1, Albumin 3.6, Globulin 3.5 H, Albumin/Globulin Ratio 1.0 L, Amylase 2378 H*, Lipase 71410 H 12/10/17 07:15: Troponin I < 0.02 Orders (Tests/Meds): ED MEDICATIONS Generic Name Dose Route Start Last Admin Trade Name Freq PRN Reason Stop Dose Admin Sodium Chloride 1,000 mls @ 999 mls/hr 12/10/17 09:30 12/10/17 09:33 Sod Chlor 0.9% 1000ml Bag IV 12/10/17 10:30 999 mls/hr .Q1H1M CAROLEE Administration Sodium Chloride 1,000 mls @ 999 mls/hr 12/10/17 09:30 Sod Chlor 0.9% 1000ml Bag IV 12/10/17 10:30 .Q1H1M CAROLEE Discontinued Medications Generic Name Dose Route Start Last Admin Trade Name Freq PRN Reason Stop Dose Admin Iopamidol 75 ml 12/10/17 08:25 12/10/17 08:26 [id number]; 75ml Vial IV 12/10/17 08:26 75 ml ONCE ONE Administration Protocol Sodium Chloride 10 ml 12/10/17 08:25 12/10/17 08:26 Rad-Saline Flush 10ml Syringe IV 12/10/17 08:26 10 ml ONCE ONE Administration ORDERS Category Date Time Status CT abdomen pelvis w con Stat Cat Scan 12/10/17 07:40 Taken Urinalysis and Microscopic Stat Lab 12/10/17 07:05 Ordered - CT Data Findings Narrative: Pt has worsening pancreatitis on CT scan (Alayna Arrington) - ECG Data Tracing #1 EKG interpreted by Mamadou Shipley MD: Rhythm: sinus Rate: 73 [place]: normal Ectopy: none Conduction: normal ST Segment Changes: none T Wave Changes: none Q Waves: none No evidence of acute ischemia or injury Normal electrocardiogram (Mamadou Shipley) EKG interpreted by Mamadou Shipley MD: Rhythm: sinus Rate: 73 [place]: normal Ectopy: none Conduction: normal ST Segment Changes: none T Wave Changes: none Q Waves: none No evidence of acute ischemia or injury Normal electrocardiogram (Alayna Arrington) Medical Decision Narrative: At shift change, I have discussed the patient with Dr. Arrington, who will assume care of the patient at this time. I have discussed all clinical information including history, physical and diagnostic study results. Preliminary diagnoses based on information available at this point have been recorded by me. Controlled substance administration and critical care statement are also preliminary, as of the time of handoff. (Mamadou Shipley) At shift change, I have discussed the patient with Dr. Arrington, who will assume care of the patient at this time. I have discussed all clinical information including history, physical and diagnostic study results. Preliminary diagnoses based on information available at this point have been recorded by me. Controlled substance administration and critical care statement are also pr eliminary, as of the time of handoff. (Alayna Arrington) General Adult HPI - General Mode of Arrival: Ambulatory Limitations: No Limitations Description of Symptoms (Recalled from ER Triage Doc. by RN): to ed per pvt car with c/o sharp upper abd pain which woke her up at 2:30 this am, states pain worse when she lays flat. +nausea, hx of cholecystectomy 09/24. <Mamadou Shipley - Last Filed: 12/10/17 07:58> <Alayna Arrington - Last Filed: 12/10/17 09:38> - General Chief complaint: Abdominal Pain Stated complaint: abdominal pain Time Seen by Provider: 12/10/17 07:32 - History of Present Illness HPI narrative: Upper abdominal pain that woke her up at 2:30 AM. Worse with laying down. Nausea, but no vomiting. No back pain. No fever. Feels similar to previous pancreatitis. She had a cholecystectomy due to pancreatitis in September. Had a follow-up abdominal ultrasound in October which she says was negative. Surgeon is Dr. Mays. She is a nondrinker. She does have hyperlipidemia. (Mamaduo John) Upper abdominal pain that woke her up at 2:30 AM. Worse with laying down. Nausea, but no vomiting. No back pain. No fever. Feels similar to previous pancreatitis. She had a cholecystectomy due to pancreatitis in September. Had a follow-up abdominal ultrasound in October which she says was negative. Surgeon is Dr. Mays. She is a nondrinker. She does have hyperlipidemia. (Alayna Arrington) - Related Data Home Medications Medication Instructions Recorded Confirmed Pravastatin Sodium [Pravachol 20mg 20 mg PO DAILY 09/18/17 12/10/17 Tablet] aspirin 81 mg tablet,delayed 81 mg PO BID tab 11/30/17 12/10/17 release Allergies Allergy/AdvReac Type Severity Reaction Status Date / Time nickel Allergy Verified 11/30/17 08:57 [facility] History I have reviewed the patient's past medical history: Yes Medical History: Reports:: Chronic Obstructive Pulmonary Disease (COPD), Heart Murmur, Hyperlipidemia, Transient Ischemic Attacks (TIA) Denies:: Cancer, Diabetes Mellitus Type 1, Diabetes Mellitus Type 2, Internal Pacemaker, MRSA, Seizures Other Medical History: Reports: Arthritis, Other Other Surgeries: Yes: Hysterectomy-Partial, Other. No: Pacemaker Amputation: No Fractures: No - Social History Smoking Status: Current every day smoker Tobacco Type: cigarettes # Packs/Day (cigarettes): 1 #Yrs smoked (if former smoker): 46 Alcohol Intake: never Substance Use Type: denies use Occupational Status: employed Housing: house Household Members: none - Psychiatric History Expresses thoughts of harming self/others: None Suicide Plan Description: No Plan Family Hx:: Cancer <JluisrobyMamadou capone - Last Filed: 12/10/17 07:58> ROS Obtained: Yes All systems reviewed & no additional complaints - Constitutional Constitutional: Denies fever(s) - Cardiovascular Cardiovascular: Denies chest pain - Respiratory Respiratory: No dyspnea - Gastrointestinal Gastrointestingal: Reports: abdominal pain, nausea. Denies: diarrhea, vomiting - Genitourinary Female Genitourinary: Denies dysuria, Denies flank pain - Musculoskeletal Musculoskeletal: Denies back pain <QuintenMamadou - Last Filed: 12/10/17 07:58> Physical Exam - General General appearance: alert, in no apparent distress - Head Head exam: atraumatic, normocephalic - Eye Eye exam: Present: normal appearance, PERRL, EOMI - ENT ENT exam: Present: mucous membranes moist - Neck Neck exam: Present: normal inspection - Chest Chest inspection: Present: normal inspection, symmetric chest wall rise - Respiratory Respiratory exam: Present: normal lung sounds bilaterally. Absent: respiratory distress - Cardiovascular Cardiovascular exam: Present: regular rate, normal rhythm, normal heart sounds - Abdominal Exam Abdominal exam: Present: soft, tenderness. Absent: distention, guarding, rebound Abdominal tenderness: Present: RUQ, LUQ, epigastrium - Extremities Exam Extremities exam: Present: normal inspection - Neurological Exam Neurological exam: Present: alert, oriented X3 - Psychiatric Psychiatric exam: Present: normal affect - Skin Skin exam: Present: warm, dry <Mamadou Shipley - Last Filed: 12/10/17 07:58>
[2017-12-10 07:35] LABS: Bilirubin,Urine Negative (Negative)
[2017-12-10 07:40] LABS: Bacteria,Urine Trace /lpf; Mucus,Urine 2+ /lpf; WBC,Urine Occasional #/hpf (0-3)
[2017-12-10 07:43] LABS: Albumin Level 3.6 gm/dL (3.4-5.0); Anion Gap 13.8 mEq/L (5-15); Bilirubin,Total 0.4 mg/dL (0.2-1.0); Calcium 8.3 mg/dL (8.5-10.1); Globulin 3.5 gm/dl (1.3-3.2); Potassium 3.8 mmoL/L (3.5-5.1); Total Protein,Serum 7.1 gm/dL (6.4-8.2)
[2017-12-10 08:09] LABS: Lymphocytes % 12 % (10-50); Monocytes % 8 % (2-9); Neutrophils % 78 % (42-76); Polychromasia 1+; RBC Morphology Normal; Total Cells Counted 100
--- NOTE | 2017-12-10 11:33 | Pharmacy Consult Notes ---
[facility] Pharmacy VTE Monitoring - Patient Demographics Admission date: 12/10/17 Report Date: 12/10/17 Time: 11:33 Allergies/Adverse Reactions: Patient Allergies nickel Allergy (Verified 11/30/17 08:57) Height: 1.55 m Weight: 88.904 kg Patient Problems: Current Active Problems Upper abdominal pain (Acute) Acute pancreatitis (Acute) - VTE Risk Labs: VTE Related Lab Results Hgb 13.2 g/dL (12.2-16.2) 12/10/17 07:15 Hct 42.0 % (37.0-47.0) 12/10/17 07:15 Plt Count 198 K/mm3 (142-424) 12/10/17 07:15 BUN 10 mg/dL (7-18) 12/10/17 07:15 Creatinine 0.75 mg/dL (0.55-1.02) 12/10/17 07:15 Estimated Creat Clear 83 mL/min (0-300) 12/10/17 07:15 Was VTE Risk Assessment Performed: Yes VTE Score: 2 VTE Risk Level: Low Risk - Prophylaxis VTE Prophylaxis Ordered?: Yes Types of VTE Prophylaxis: TEDS Knee High Location of Applied Device: Bilateral Lower Extremeties - VTE Diagnosis Confirmed Treatment or plan recommended: Continue Current Treatment
--- NOTE | 2017-12-10 17:47 | History & Physical Report ---
*Admission Date: 12/10/17 *Chief complaint: Abd pain and nausea *History of present illness: 62-year-old white female with history of recurrent pancreatitis, apparently attributed to gallstone disease, who underwent uncomplicated laparoscopic cholecystectomy with reportedly normal cholangiogram in September 2017. Had postoperative evaluation early in November of this year and was doing well, CT scan was obtained for some abdominal pain which revealed essentially normal pancreas and no significant intra-abdominal abnormalities. Patient did well until yesterday evening when she began to have the onset of gnawing, sharp and worsening epigastric pain that culminated in the ER visit this morning. ER workup revealed CT scan consistent with acute pancreatitis, no other significant abnormalities, no pseudocyst formation, and laboratory studies showed increased amylase/lipase without evidence of LFT elevation. She was admitted to hospital for pain control and IV fluids. Of note patient denies any kind of alcohol intake. Her only medications are pravastatin and "aspirin when I have aches and pains"-on discussion with her she takes several of these tablets daily but it sounds like they are actually acetaminophen tablets as she takes 500 mg strength. There is no family history of pancreatitis. She does not recall recent lipid profile but sees Dr. Ward in [place] who has maintained her on pravastatin for several years and obtains a yearly lipid profile. [facility] History I have reviewed the patient's past medical history: Yes Medical History: Reports:: Chronic Obstructive Pulmonary Disease (COPD), Heart Murmur, Hyperlipidemia, Transient Ischemic Attacks (TIA) Denies:: Cancer, Diabetes Mellitus Type 1, Diabetes Mellitus Type 2, Internal Pacemaker, MRSA, Seizures Other Medical History: Reports: Arthritis, Other Other Surgeries: Yes: Cholecystectomy, Hysterectomy-Partial, Other. No: Pacemaker Amputation: No Fractures: No - *Social History Smoking Status: Current every day smoker Tobacco Type: cigarettes # Packs/Day (cigarettes): 20 #Yrs smoked (if former smoker): 46 Alcohol Intake: never Substance Use Type: denies use Occupational Status: employed Housing: house Household Members: none - Psychiatric History Expresses thoughts of harming self/others: None Suicide Plan Description: No Plan *Family Hx:: Cancer Review of Systems - Review of Systems Review of systems:: pertinent systems reviewed and negative unless documented below - Constitutional Reports anorexia, Denies body ache(s), Denies chills, Denies daytime sleepiness - Eyes Denies blurry vision, Denies change in vision - ENT Denies abnormal hearing, Denies bleeding gums, Denies change in voice - *Cardiovascular Denies chest pain, Denies chest pain at rest, Denies excessive sweating, Denies generalized swelling, Denies irregular heart rhythm - *Respiratory Denies change in phlegm color, Denies chest congestion, Denies cough, Denies shortness of breath, Denies excessive phlegm production, Denies coughing up blood - *Gastrointestinal Reports abdominal pain, Reports belching, Reports bloating, Reports nausea, Reports vomiting, Denies change in bowel habits, Denies change in stools, Denies coffee ground vomit, Denies constipation, Denies cramping, Denies loose stools, Denies heartburn, Denies difficulty swallowing, Denies feeling full early, Denies excessive passing of gas, Denies vomiting blood, Denies bright, red blood in stools, Denies loose stools, Denies black, tarry stools, Denies pain with swallowing - *Musculoskeletal Denies abnormal walking, Denies joint pain, Denies decreased muscle mass - Integumentary/Breasts Denies hair loss, Denies bleeding lesions, Denies change in hair - *Neurologic Denies abnormal walking, Denies abnormal hearing, Denies abnormal movements, Denies abnormal speech, Denies behavioral changes - Endocrine Denies cold intolerance, Denies excessive sweating, Denies flushing - Hematologic/Lymphatic Denies easy bleeding, Denies easy bruising, Denies enlarged lymph nodes - Allergic/Immunologic Denies GI upset with certain foods Meds Home Medications Medication Instructions Recorded Confirmed Type Pravastatin Sodium [Pravachol 20mg 20 mg PO HS 09/18/17 12/10/17 History Tablet] aspirin 81 mg tablet,delayed 81 mg PO HS tab 11/30/17 12/10/17 History release Aspirin [Aspirin 325mg Tab] 325 mg PO Q4-6H PRN 12/10/17 12/10/17 History Allergies Allergy/AdvReac Type Severity Reaction Status Date / Time nickel Allergy Verified 11/30/17 08:57 Exam Vital signs and Labs for Last 24 Hours: Temp Pulse Resp BP Pulse Ox 98.2 F 57 L 18 118/49 L 91 L 12/10/17 16:00 12/10/17 16:00 12/10/17 16:00 12/10/17 16:00 12/10/17 16:00 Laboratory Results - last 24 hr 12/10/17 07:05: Urine Color Yellow, Urine Appearance Sl cloudy, Urine pH 5.5, Ur Specific [place] >= 1.030, Urine Protein Negative, Urine Glucose (UA) Negative, Urine Ketones Negative, Urine Blood Negative, Urine Nitrate Negative, Urine Bilirubin Negative, Urine Urobilinogen 0.2, Ur Leukocyte Esterase Trace, Urine RBC None, Urine WBC Occasional, Ur Squamous Epith Cells 10-20, Urine Bacteria Trace, Urine Mucus 2+ 12/10/17 07:15: WBC 8.4, RBC 5.01, Hgb 13.2, Hct 42.0, MCV 83.8, MCH 26.4 L, M CHC 31.5 L, RDW 14.6, Plt Count 198, MPV 8.2, Neut % (Auto) 85.2 H, Lymph % (Auto) 9.8 L, [place] % (Auto) 3.5, Eos % (Auto) 0.9, Baso % (Auto) 0.6, Neut # (Auto) 7.1, Lymph # (Auto) 0.8, [place] # (Auto) 0.3, Eos # (Auto) 0.1, Baso # (Auto) 0.1, Total Counted 100, Neutrophils % (Manual) 78 H, Band Neutrophils % 1.0, Lymphocytes % (Manual) 12, Monocytes % (Manual) 8, Metamyelocytes % 1.0, Platelet Estimate Normal, RBC Morphology Normal, Polychromasia 1+ 12/10/17 07:15: Sodium 141, Potassium 3.8, Chloride 106, Carbon Dioxide 25, Anion Gap 13.8, BUN 10, Creatinine 0.75, Estimated Creat Clear 83, Estimated GFR 79, Est GFR ( Amer) 95, Glucose 132 H, Calcium 8.3 L, Total Bilirubin 0.4, AST 19, ALT 26, Alkaline Phosphatase 79, Total Protein 7.1, Albumin 3.6, Globulin 3.5 H, Albumin/Globulin Ratio 1.0 L, Amylase 2378 H*, Lipase 95060 H 12/10/17 07:15: Troponin I < 0.02 I & O for Last 24 hours: Intake & Output 12/08/17 12/09/17 12/10/17 12/11/17 11:59 11:59 11:59 11:59 Weight 196 lb Narrative: Patient is pleasant, oriented x3, in no distress, feels much better at the time of my exam than she did on presentation to the emergency department. Oropharynx clear of lesions, poor dentition. No sinus tenderness or nasal deformity. Lungs are clear in the anterior and posterior eubanks. Heart rate regular without murmurs or gallops. Abdomen soft, minimal epigastric tenderness. Apparently much improved exam. No stigmata of liver disease. Distal extremities warm and well-perfused, no pulse deficits. Assessment and Plan (1) Acute pancreatitis Current visit: Yes Status: Acute Qualifiers: Pancreatitis type: unspecified pancreatitis type Acute pancreatitis complication: unspecified Qualified Code(s): K85.90 - Acute pancreatitis without necrosis or infection, unspecified Category: Medical Code(s): K85.90 - Acute pancreatitis without necrosis or infection, unspecified Encouraging lab results in regards to Riggins's criteria. Slightly low calcium levels. Replace this intravenously overnight recheck again tomorrow morning. In regards to etiology of pancreatitis could possibly be pravastatin, versus familial/idiopathic. Hold pravastatin, check triglyceride levels. All the labs tomorrow. (2) Upper abdominal pain Current visit: Yes Status: Acute Category: Medical Code(s): R10.10 - Upper abdominal pain, unspecified See plan above.
[2017-12-10 18:07] LABS: T4 (Thyroxine) 9.2 ug/dl (4.7-13.3); Thyroid Stimulating Hormone 2.3 uIU/ml (0.358-3.740)
[2017-12-11 06:09] LABS: Basophils % 0.5 % (0.1-2.0); Eosinophils # 0.1 K/mm3 (0.0-0.4); Eosinophils % 1.2 % (0.1-12.0); Hematocrit 35.1 % (37.0-47.0); Lymphocytes # 1.1 K/mm3 (0.7-4.5); Lymphocytes % 18.5 K/mm3 (10-50); Mean Corpuscular HGB Conc 31.8 g/dL (31.8-35.4); Mean Corpuscular Hemoglobin 26.4 pg (27.0-31.2); Mean Corpuscular Volume 82.8 fl (81-99); Mean Platelet Volume 8.6 fl (7.4-10.4); Monocytes # 0.4 K/mm3 (0.1-1.0); Monocytes % 6.7 % (1.7-9.3); Neutrophils # 4.3 K/mm3 (1.8-7.8); Platelet Count 144 K/mm3 (142-424); Red Blood Count 4.24 M/mm3 (4.20-5.40); Red Cell Distribution Width 14.6 % (11.5-17.5); White Blood Count 5.9 K/mm3 (4.8-10.8)
[2017-12-11 06:13] LABS: INR 1.04 (0.9-1.1); Prothrombin Time 10.7 seconds (9.4-11.8)
[2017-12-11 06:16] LABS: Hemoglobin 11.2 g/dL (12.2-16.2)
[2017-12-11 06:17] LABS: Albumin Level 2.9 gm/dL (3.4-5.0); Anion Gap 13.7 mEq/L (5-15); Bilirubin,Total 0.5 mg/dL (0.2-1.0); Calcium 7.9 mg/dL (8.5-10.1); Globulin 2.9 gm/dl (1.3-3.2); Phosphorous 3.3 mg/dL (2.4-4.9); Potassium 3.7 mmoL/L (3.5-5.1); Total Protein,Serum 5.8 gm/dL (6.4-8.2)
--- NOTE | 2017-12-11 08:54 | Progress Note ---
Internal Medicine - PN: Subj *Date: 12/11/17 *Time: 08:51 Interval history: Overnight tolerating p.o. fluids. Still unable to tolerate food. Having belly pain, though interval improvement. Denies fevers, shortness of breath, chest pain. 2 bowel movements, adequate urine output. Feeling better but still uncomfortable. Exam Vital signs and Labs for Last 24 Hours: Temp Pulse Resp BP Pulse Ox 98.1 F 80 18 120/52 L 95 12/11/17 07:48 12/11/17 07:48 12/11/17 07:48 12/11/17 07:48 12/11/17 07:48 Laboratory Results - last 24 hr 12/10/17 07:15: Amylase 2378 H*, Lipase 75152 H 12/10/17 07:15: Triglycerides 89, Cholesterol 134 L, LDL Cholesterol 71, VLDL Cholesterol 18, HDL Cholesterol 45, Cholesterol/HDL Ratio 3.0 12/10/17 07:15: TSH 2.30, Free T4 Index 3.0 L, Thyroxine (T4) 9.2, T3 Uptake 33 12/11/17 05:45: WBC 5.9 D, RBC 4.24, Hgb 11.2 L D, Hct 35.1 L, MCV 82.8, MCH 26.4 L, MCHC 31.8, RDW 14.6, Plt Count 144 D, MPV 8.6, Neut % (Auto) 73.0, Lymph % (Auto) 18.5, [place] % (Auto) 6.7, Eos % (Auto) 1.2, Baso % (Auto) 0.5, Neut # (Auto) 4.3, Lymph # (Auto) 1.1, [place] # (Auto) 0.4, Eos # (Auto) 0.1, Baso # (Auto) 0.0 12/11/17 05:45: PT 10.7, INR 1.04 12/11/17 05:45: Sodium 142, Potassium 3.7, Chloride 109 H, Carbon Dioxide 23, Anion Gap 13.7, BUN 5 L D, Creatinine 0.58 D, Estimated Creat Clear 79, Estimated GFR 106, Est GFR ( Amer) 128 D, Glucose 89 D, Calcium 7.9 L, Phosphorus 3.3, Magnesium 1.8, Total Bilirubin 0.5, AST 15, ALT 19 D, Alkaline Phosphatase 60, Total Protein 5.8 L, Albumin 2.9 L D, Globulin 2.9, Albumin/Globulin Ratio 1.0 L, Amylase 369 H* D 12/11/17 05:45: Lipase 1613 H I & O for Last 24 hours: Intake & Output 12/08/17 12/09/17 12/10/17 12/11/17 23:59 23:59 23:59 23:59 Intake Total 848 / 848 2268 / 2268 Output Total 800 / 800 Balance 848 / 848 1468 / 1468 Weight 88.904 kg 84.878 kg - *Routine HEENT Exam Head: Present: normocephalic, atraumatic Eye: Present: EOMI, PERRL ENT: Present: mucous membranes moist. Absent: dentition normal - *Routine Neck Exam Present: supple, full ROM. Absent: JVD - *Routine Respiratory Exam Present: CTA bilaterally. Absent: prolonged expiratory phase, wheezes, crackles - *Routine Cardiovascular Exam Present: RRR, Normal S1, Normal S2. Absent: murmur - *Routine Abdominal Exam Present: soft, normoactive bowel sounds, tenderness (Most prominent in left upper and right upper quadrant) - *Routine Rectal Exam Patient deferred: visual exam - *Routine Exam Patient deferred: external exam - *Routine Extremities Exam Absent: cyanosis, clubbing, edema - *Routine Skin Exam Present: intact. Absent: cyanosis, erythema - *Routine Neurological Exam Present: alert, oriented X3, CN II-XII intact. Absent: altered mental status Assessment and Plan (1) Acute pancreatitis Current visit: Yes Status: Acute Qualifiers: Pancreatitis type: unspecified pancreatitis type Acute pancreatitis complication: unspecified Qualified Code(s): K85.90 - Acute pancreatitis without necrosis or infection, unspecified Category: Medical Code(s): K85.90 - Acute pancreatitis without necrosis or infection, unspecified Otto criteria: 1 point at time of admission, total of 3 points today. Patient has estimated mortality rate of 16% -Advance diet today -As patient clinically is improving, if she tolerates an advance in her diet consider discharge this evening, however plan to keep until tomorrow pending improvement in p.o. intake. -Significant drop in pancreas enzymes -Repeat labs in the morning (2) Upper abdominal pain Current visit: Yes Status: Acute Category: Medical Code(s): R10.10 - Upper abdominal pain, unspecified
--- NOTE | 2017-12-11 15:19 | Discharge Summary ---
General - General Admission date:: 12/10/17 Discharge date: 12/11/17 HPI HPI: 62-year-old white female with history of recurrent pancreatitis, apparently attributed to gallstone disease, who underwent uncomplicated laparoscopic cholecystectomy with reportedly normal cholangiogram in September 2017. Had postoperative evaluation early in November of this year and was doing well, CT scan was obtained for some abdominal pain which revealed essentially normal pancreas and no significant intra-abdominal abnormalities. Patient did well until yesterday evening when she began to have the onset of gnawing, sharp and worsening epigastric pain that culminated in the ER visit this morning. ER workup revealed CT scan consistent with acute pancreatitis, no other significant abnormalities, no pseudocyst formation, and laboratory studies showed increased amylase/lipase without evidence of LFT elevation. She was admitted to hospital for pain control and IV fluids. Of note patient denies any kind of alcohol intake. Her only medications are pravastatin and "aspirin when I have aches and pains"-on discussion with her she takes several of these tablets daily but it sounds like they are actually acetaminophen tablets as she takes 500 mg strength. There is no family history of pancreatitis. She does not recall recent lipid profile but sees Dr. Ward in [place] who has maintained her on pravastatin for several years and obtains a yearly lipid profile. Hospital Course Hospital Course: Patient admitted for acute pancreatitis. Significant improvement in lipase. Patient symptoms improved over course of admission. Aggressive fluid hydration during admission. Dachshund from clear liquid to full liquid with no abdominal discomfort, pain, nausea or vomiting. Patient hemodynamically stable and meeting criteria for discharge home. Objective Vital signs: Temp Pulse Resp BP Pulse Ox 98.1 F 80 18 120/52 L 95 12/11/17 07:48 12/11/17 07:48 12/11/17 07:48 12/11/17 07:48 12/11/17 07:48 Narrative: - *Routine HEENT Exam Head: Present: normocephalic, atraumatic Eye: Present: EOMI, PERRL ENT: Present: mucous membranes moist. Absent: dentition normal - *Routine Neck Exam Present: supple, full ROM. Absent: JVD - *Routine Respiratory Exam Present: CTA bilaterally. Absent: prolonged expiratory phase, wheezes, crackles - *Routine Cardiovascular Exam Present: RRR, Normal S1, Normal S2. Absent: murmur - *Routine Abdominal Exam Present: soft, normoactive bowel sounds, tenderness (Most prominent in left upper and right upper quadrant) - *Routine Rectal Exam Patient deferred: visual exam - *Routine Exam Patient deferred: external exam - *Routine Extremities Exam Absent: cyanosis, clubbing, edema - *Routine Skin Exam Present: intact. Absent: cyanosis, erythema - *Routine Neurological Exam Present: alert, oriented X3, CN II-XII intact. Absent: altered mental status Results Labs on day of discharge: Labs from last 24 hours 12/11/17 12/11/17 12/11/17 05:45 05:45 05:45 WBC RBC Hgb Hct MCV MCH MCHC RDW Plt Count MPV Neut % (Auto) Lymph % (Auto) [place] % (Auto) Eos % (Auto) Baso % (Auto) Neut # (Auto) Lymph # (Auto) [place] # (Auto) Eos # (Auto) Baso # (Auto) PT 10.7 INR 1.04 Sodium 142 Potassium 3.7 Chloride 109 H Carbon Dioxide 23 Anion Gap 13.7 BUN 5 L D Creatinine 0.58 D Estimated Creat Clear 79 Estimated GFR 106 Est GFR ( Amer) 128 D Glucose 89 D Calcium 7.9 L Phosphorus 3.3 Magnesium 1.8 Total Bilirubin 0.5 AST 15 ALT 19 D Alkaline Phosphatase 60 Total Protein 5.8 L Albumin 2.9 L D Globulin 2.9 Albumin/Globulin Ratio 1.0 L Triglycerides Cholesterol LDL Cholesterol VLDL Cholesterol HDL Cholesterol Cholesterol/HDL Ratio Amylase 369 H* D Lipase 1613 H TSH Free T4 Index Thyroxine (T4) T3 Uptake 12/11/17 12/10/17 12/10/17 05:45 07:15 07:15 WBC 5.9 D RBC 4.24 Hgb 11.2 L D Hct 35.1 L MCV 82.8 MCH 26.4 L MCHC 31.8 RDW 14.6 Plt Count 144 D MPV 8.6 Neut % (Auto) 73.0 Lymph % (Auto) 18.5 [place] % (Auto) 6.7 Eos % (Auto) 1.2 Baso % (Auto) 0.5 Neut # (Auto) 4.3 Lymph # (Auto) 1.1 [place] # (Auto) 0.4 Eos # (Auto) 0.1 Baso # (Auto) 0.0 PT INR Sodium Potassium Chloride Carbon Dioxide Anion Gap BUN Creatinine Estimated Creat Clear Estimated GFR Est GFR ( Amer) Glucose Calcium Phosphorus Magnesium Total Bilirubin AST ALT Alkaline Phosphatase Total Protein Albumin Globulin Albumin/Globulin Ratio Triglycerides 89 Cholesterol 134 L LDL Cholesterol 71 VLDL Cholesterol 18 HDL Cholesterol 45 Cholesterol/HDL Ratio 3.0 Amylase Lipase TSH 2.30 Free T4 Index 3.0 L Thyroxine (T4) 9.2 T3 Uptake 33 DS: Diagnosis - Discharge Diagnosis (1) Acute pancreatitis Status: Acute Problem details: Symptoms resolving. Advancing diet. Stable for discharge home (2) Upper abdominal pain Status: Acute Discharge Plan - Patient Discharge Instructions ACTIVITY: Continue current activity DIET: advance to your usual diet, low fat, low cholesterol - Follow up Plan Follow up with: Julian Loera MD [Staff Physician] - 1 week Disposition: Home, Self-[facility] Medications: Home Medications Medication Instructions Recorded Confirmed Type Pravastatin Sodium [Pravachol 20mg 20 mg PO HS 09/18/17 12/10/17 History Tablet] aspirin 81 mg tablet,delayed 81 mg PO HS tab 11/30/17 12/10/17 History release Aspirin [Aspirin 325mg Tab] 325 mg PO Q4-6H PRN 12/10/17 12/10/17 History Prescriptions/Medication Reconciliation: New Ondansetron [Zofran 4mg ODT] 4 mg PO Q6HP PRN 4 Days #16 tab PRN Reason: Nausea Continue aspirin 81 mg tablet,delayed release 81 mg PO HS tab Pravastatin Sodium [Pravachol 20mg Tablet] 20 mg PO HS Discontinued Aspirin [Aspirin 325mg Tab] 325 mg PO Q4-6H PRN PRN Reason: PAIN
== END 2017-12-11 16:50 | disposition home or self-care (01) ==
LOC: ER 06:58 → INTOOBSV 10:20 → 2ND 10:20
PROVIDERS: ADMIT Internal Medicine Adolescent Medicine; ATTEND Internal Medicine Adolescent Medicine
CPT/HCPCS: 36415; 74177; 80053; 80061; 81001; 82150; 83690; 83735; 84100; 84436; 84443; 84479; 84484; 85007; 85025; 85610; 93005; 96365; 96366; 99285; G0378; Q9967

== ENCOUNTER → 2018-02-22 09:36 | Outpatient (CLI) | payer BC, SELFPAY ==
[2018-02-22 11:03] LABS: Blood Urea Nitrogen 8 mg/dL (7-18); Creatinine,Serum 0.93 mg/dL (0.55-1.02); Estimated Glomerular Filt Rate 61 ml/min (>60); GFR (African American) 74 ML/MIN (>60)
== END ==
PROVIDERS: Visit Provider Surgery
DX: K85.90 Acute pancreatitis without necrosis or infection, unspecified (principal)
CPT/HCPCS: 36415; 82565; 84520